=== PATIENT | male | born 1940 | race Caucasian/White ===

== ENCOUNTER 2018-11-30 09:17 | Inpatient (IN) ==
[2018-11-30] MEDS ORDERED: Pantoprazole Inj 40 MG Vial IV.PUSH ONE (11:44)
[2018-11-30] MEDS ORDERED: Sod Chloride 0.9% Inj 1,000 ML IV.SIG ONE (11:44)
--- NOTE | 2018-11-30 11:51 | ED ---
HPI General Chief complaint: GI Bleed Stated complaint: Bleeding Time Seen by Provider: 11/30/18 11:32 Source: patient and RN notes reviewed Mode of arrival: ambulatory Limitations: no limitations History of Present Illness HPI Narrative: 78-year-old male presents to the emergency department for evaluation of bright red blood per the rectum. Patient states he went to have a bowel movement this morning around 8:45 AM. He states he had bright red blood filling the toilet bowl with clots. He states he has had multiple episodes since then. Patient denies any pain to me right now. No weakness or syncope. No dizziness. No chest pain or shortness of breath. No nausea, vomiting, diarrhea. Patient denies drinking alcohol. He states he has been taking aspirin for back pain as well as Aleve. Patient reports history of a TURP, diabetes, hypertension, diverticulitis. Moderate severity. Patient denies being on any other anticoagulants other than aspirin. MD complaint: Reports gross hematochezia Onset (ago): hour(s) Pain Consistency: constant Severity: moderate Relieving factors: none Exacerbating factors: bowel movement Context: Reports hemorrhoids and medication/supplement use; Denies history of GI bleed, alcohol abuse, known esophageal varices, unusual food and near syncope Associated symptoms: Reports denies other symptoms; Denies abdominal pain, nausea, vomiting, epistaxis, fever, chills, headaches, loss of appetite, malaise , easy bruising, rash, other bleeding, shortness of breath, syncope and weakness Treatments Prior to Arrival: Reports none Related Data Home Medications Medication Instructions Recorded Confirmed aspirin 81 mg PO DAILY 08/10/18 11/30/18 losartan 50 mg PO DAILY 08/10/18 11/30/18 metformin 1,000 mg PO DAILY 08/10/18 11/30/18 omega 0-vvs-szk-fish oil [Fish Oil] 1 tab PO DAILY 08/10/18 11/30/18 glimepiride 4 mg PO QAM 11/30/18 11/30/18 Allergies Allergy/AdvReac Type Severity Reaction Status Date / Time No Known Allergies Allergy Verified 11/30/18 11:49 Review of Systems ROS: all other systems reviewed are negative [facility] Surgical History Surgical History S/P TURP (transurethral resection of prostate) (Acute) Social History Social History Substance History: No History of Abuse Second Hand Smoke Exposure: No Smoking Status: Former smoker Tobacco Type: Cigarettes How Often Do You Have a Drink Containing Alcohol: Never Recent Travel in [facility] within the Last 8 Weeks: No Recent Out of Country Travel within the Last 8 Weeks: No Exam Narrative Exam Narrative: GENERAL: Well-nourished, well-developed male patient, afebrile SKIN: Focused skin assessment warm/dry. HEAD: Normocephalic. Atraumatic EYES: No scleral icterus. No injection or drainage. NECK: Supple, trachea midline. No JVD or lymphadenopathy. CARDIOVASCULAR: Regular rate and rhythm without murmurs, gallops, or rubs. RESPIRATORY: Breath sounds equal bilaterally. No accessory muscle use. Lung sounds are clear to auscultation GASTROINTESTINAL: Abdomen soft and nondistended. Patient reports mild tenderness over the LLQ to palpation; no rebound tenderness; no guarding MUSCULOSKELETAL: No cyanosis, or edema. BACK: Nontender without obvious deformity. No CVA tenderness. RECTAL EXAM: No masses or tenderness, stool is red. Patient does have external hemorrhoids but do not appear to be bleeding. This exam was done with STEW Rosario at bedside. Course Initial Documented Vital Signs Temperature 98.3 F 11/30/18 09:34 Pulse Rate 93 H 11/30/18 09:34 Respiratory Rate 16 11/30/18 09:34 Blood Pressure 192/86 H 11/30/18 09:34 Pulse Oximetry 98 11/30/18 09:34 Last Documented Vital Signs Temperature 98.1 F 12/06/18 16:00 Pulse Rate 105 H 12/06/18 16:00 Respiratory Rate 19 12/06/18 16:00 Blood Pressure 174/80 H 12/06/18 16:15 Pulse Oximetry 99 12/06/18 16:00 Medical Decision Making BELLE Attestation BELLE supervised visit: Yes Attestation: I, Dr. Hunter, have reviewed the advance practice practitioner' s documentation and am in agreement, met with the patient face to face, made the diagnosis, and the medical decision making was done by me. The patient was initially evaluated by sandra pfeiffer. Please see their complete history and physical. MDM Narrative Medical decision making narrative: 78-year-old male presents to the emergency department for evaluation of bright red blood per the rectum that started this morning, filling the toilet bowl. Patient denies any other symptoms. Does report some mild left lower quadrant tenderness to palpation. IV access obtained. CBC, CMP, lipase, magnesium, PTT, PT/INR, type and screen are ordered and pending. CT abdomen/pelvis with IV contrast is ordered and pending. Patient is given normal saline 1 L IV bolus, Protonix 40 mg IV. CBC is unremarkable. Hemoglobin is stable at 13.9 hematocrit 40.2. CMP shows no acute abnormality. Lipase is 255. Magnesium is 2.3. PTT was 30.3. PT/INR is 10.7/1.1. CT abdomen/pelvis shows diverticulitis sigmoid colon without diverticulitis, perirectal tissues appear normal, I do not see inflammatory changes to account for the left lower quadrant pain. Patient will be admitted for observation as he describes a significant amount of bright red bleeding per the rectum to monitor hemoglobin, hematocrit. Medical Screen Exam Complete: Yes Emergency Medical Condition: Yes Differential Diagnosis Differential Diagnosis: Lower GI bleed versus upper GI bleed versus anemia versus bleeding hemorrhoid Medical Records Medical records reviewed: Yes I reviewed the patient's medical records. Lab Data Result diagrams: 12/06/18 07:48 12/06/18 07:43 Lab Results 11/30/18 11/30/18 11/30/18 Range/Units 11:50 11:50 11:50 WBC 8.2 (4.0-11.0) th/mm3 RBC 4.60 (4.50-5.90) mil/mm3 Hgb 13.9 (13.0-17.0) gm/dL Hct 40.2 (39.0-51.0) % MCV 87.4 (80.0-100.0) fL MCH 30.3 (27.0-34.0) pg MCHC 34.7 (32.0-36.0) % RDW 14.2 (11.6-17.2) % Plt Count 287 (150-450) th/mm3 MPV 7.2 (7.0-11.0) fL Neut % (Auto) 69.8 (16.0-70.0) % Lymph % (Auto) 19.1 (9.0-44.0) % [place] % (Auto) 6.9 (0.0-8.0) % Eos % (Auto) 3.3 (0.0-4.0) % Baso % (Auto) 0.9 (0.0-2.0) % Neut # (Auto) 5.7 (1.8-7.7) th/mm3 Lymph # (Auto) 1.6 (1.0-4.8) th/mm3 [place] # (Auto) 0.6 (0.0-0.9) th/mm3 Eos # (Auto) 0.3 (0.0-0.4) th/mm3 Baso # (Auto) 0.1 (0.0-0.2) th/mm3 WBC Differential . Differential Comment Auto diff final PT 10.7 (9.8-11.6) sec INR 1.1 Ratio APTT 30.3 (23.4-31.7) sec Sodium 135 L (136-145) meq/L Potassium 4.3 (3.5-5.1) meq/L Chloride 101 (98-107) meq/L Carbon Dioxide 27.8 (21.0-32.0) meq/L Anion Gap 6 (5-15) meq/L BUN 12 (7-18) mg/dL Creatinine 0.76 (0.60-1.30) mg/dL Estimated GFR Greater than 89 (>89) mL/min POC Glucose (68-110) mg/dl Random Glucose 128 H (74-106) mg/dL Calcium 9.9 (8.5-10.1) mg/dL Magnesium 2.3 (1.5-2.5) mg/dL Total Bilirubin 0.6 (0.2-1.0) mg/dL AST 21 (15-37) U/L ALT 26 (12-78) U/L Alkaline Phosphatase 97 (45-117) U/L Total Protein 8.1 (6.4-8.2) g/dL Albumin 3.8 (3.4-5.0) g/dL Lipase 255 (73-393) U/L Urine Color (Yellw/Straw) Urine Clarity (Clear) Urine pH (5.0-8.5) Ur Specific [place] (1.002-1.035) Urine Protein (Neg-Trace) mg/dL Urine Glucose (UA) (Negative) mg/dL Urine Ketones (Negative) mg/dL Urine Occult Blood (Negative) Urine Nitrate (Negative) Urine Bilirubin (Negative) Urine Urobilinogen (Less than 2) mg/dL Ur Leukocyte Esterase (Negative) Urine RBC (0-3) /hpf Urine WBC (0-5) /hpf Urine Mucus (Occasional) /lpf Micro UA Comment Ur Microscopic Review Urine Culture Comments Nasal Screen MRSA (PCR) (Negative) Blood Type Blood Type Recheck Antibody Screen MTS Gel Crossmatch 11/30/18 11/30/18 11/30/18 Range/Units 11:50 13:45 17:43 WBC (4.0-11.0) th/mm3 RBC (4.50-5.90) mil/mm3 Hgb (13.0-17.0) gm/dL Hct (39.0-51.0) % MCV (80.0-100.0) fL MCH (27.0-34.0) pg MCHC (32.0-36.0) % RDW (11.6-17.2) % Plt Count (150-450) th/mm3 MPV (7.0-11.0) fL Neut % (Auto) (16.0-70.0) % Lymph % (Auto) (9.0-44.0) % [place] % (Auto) (0.0-8.0) % Eos % (Auto) (0.0-4.0) % Baso % (Auto) (0.0-2.0) % Neut # (Auto) (1.8-7.7) th/mm3 Lymph # (Auto) (1.0-4.8) th/mm3 [place] # (Auto) (0.0-0.9) th/mm3 Eos # (Auto) (0.0-0.4) th/mm3 Baso # (Auto) (0.0-0.2) th/mm3 WBC Differential Differential Comment PT (9.8-11.6) sec INR Ratio APTT (23.4-31.7) sec Sodium (136-145) meq/L Potassium (3.5-5.1) meq/L Chloride (98-107) meq/L Carbon Dioxide (21.0-32.0) meq/L Anion Gap (5-15) meq/L BUN (7-18) mg/dL Creatinine (0.60-1.30) mg/dL Estimated GFR (>89) mL/min POC Glucose 124 H (68-110) mg/dl Random Glucose (74-106) mg/dL Calcium (8.5-10.1) mg/dL Magnesium (1.5-2.5) mg/dL Total Bilirubin (0.2-1.0) mg/dL AST (15-37) U/L ALT (12-78) U/L Alkaline Phosphatase (45-117) U/L Total Protein (6.4-8.2) g/dL Albumin (3.4-5.0) g/dL Lipase (73-393) U/L Urine Color Yellow (Yellw/Straw) Urine Clarity Clear (Clear) Urine pH 7.0 (5.0-8.5) Ur Specific [place] 1.014 (1.002-1.035) Urine Protein Negative (Neg-Trace) mg/dL Urine Glucose (UA) Negative (Negative) mg/dL Urine Ketones Negative (Negative) mg/dL Urine Occult Blood Negative (Negative) Urine Nitrate Negative (Negative) Urine Bilirubin Negative (Negative) Urine Urobilinogen Less than 2 (Less than 2) mg/dL Ur Leukocyte Esterase Negative (Negative) Urine RBC 1 (0-3) /hpf Urine WBC 2 (0-5) /hpf Urine Mucus Few H (Occasional) /lpf Micro UA Comment Culture not ind Ur Microscopic Review Not Reportable Urine Culture Comments Culture not ind Nasal Screen MRSA (PCR) (Negative) Blood Type A Positive Blood Type Recheck Required Antibody Screen Negative MTS Gel Crossmatch 11/30/18 11/30/18 11/30/18 Range/Units 18:15 18:30 19:45 WBC (4.0-11.0) th/mm3 RBC (4.50-5.90) mil/mm3 Hgb 11.6 L D (13.0-17.0) gm/dL Hct 33.8 L (39.0-51.0) % MCV (80.0-100.0) fL MCH (27.0-34.0) pg MCHC (32.0-36.0) % RDW (11.6-17.2) % Plt Count (150-450) th/mm3 MPV (7.0-11.0) fL Neut % (Auto) (16.0-70.0) % Lymph % (Auto) (9.0-44.0) % [place] % (Auto) (0.0-8.0) % Eos % (Auto) (0.0-4.0) % Baso % (Auto) (0.0-2.0) % Neut # (Auto) (1.8-7.7) th/mm3 Lymph # (Auto) (1.0-4.8) th/mm3 [place] # (Auto) (0.0-0.9) th/mm3 Eos # (Auto) (0.0-0.4) th/mm3 Baso # (Auto) (0.0-0.2) th/mm3 WBC Differential Differential Comment PT (9.8-11.6) sec INR Ratio APTT (23.4-31.7) sec Sodium (136-145) meq/L Potassium (3.5-5.1) meq/L Chloride (98-107) meq/L Carbon Dioxide (21.0-32.0) meq/L Anion Gap (5-15) meq/L BUN (7-18) mg/dL Creatinine (0.60-1.30) mg/dL Estimated GFR (>89) mL/min POC Glucose 127 H (68-110) mg/dl Random Glucose (74-106) mg/dL Calcium (8.5-10.1) mg/dL Magnesium (1.5-2.5) mg/dL Total Bilirubin (0.2-1.0) mg/dL AST (15-37) U/L ALT (12-78) U/L Alkaline Phosphatase (45-117) U/L Total Protein (6.4-8.2) g/dL Albumin (3.4-5.0) g/dL Lipase (73-393) U/L Urine Color (Yellw/Straw) Urine Clarity (Clear) Urine pH (5.0-8.5) Ur Specific [place] (1.002-1.035) Urine Protein (Neg-Trace) mg/dL Urine Glucose (UA) (Negative) mg/dL Urine Ketones (Negative) mg/dL Urine Occult Blood (Negative) Urine Nitrate (Negative) Urine Bilirubin (Negative) Urine Urobilinogen (Less than 2) mg/dL Ur Leukocyte Esterase (Negative) Urine RBC (0-3) /hpf Urine WBC (0-5) /hpf Urine Mucus (Occasional) /lpf Micro UA Comment Ur Microscopic Review Urine Culture Comments Nasal Screen MRSA (PCR) Not detected (Negative) Blood Type Blood Type Recheck Antibody Screen MTS Gel Crossmatch 11/30/18 11/30/18 12/01/18 Range/Units 22:38 23:36 03:11 WBC (4.0-11.0) th/mm3 RBC (4.50-5.90) mil/mm3 Hgb 10.9 L 10.9 L (13.0-17.0) gm/dL Hct 31.8 L 31.5 L (39.0-51.0) % MCV (80.0-100.0) fL MCH (27.0-34.0) pg MCHC (32.0-36.0) % RDW (11.6-17.2) % Plt Count (150-450) th/mm3 MPV (7.0-11.0) fL Neut % (Auto) (16.0-70.0) % Lymph % (Auto) (9.0-44.0) % [place] % (Auto) (0.0-8.0) % Eos % (Auto) (0.0-4.0) % Baso % (Auto) (0.0-2.0) % Neut # (Auto) (1.8-7.7) th/mm3 Lymph # (Auto) (1.0-4.8) th/mm3 [place] # (Auto) (0.0-0.9) th/mm3 Eos # (Auto) (0.0-0.4) th/mm3 Baso # (Auto) (0.0-0.2) th/mm3 WBC Differential Differential Comment PT (9.8-11.6) sec INR Ratio APTT (23.4-31.7) sec Sodium (136-145) meq/L Potassium (3.5-5.1) meq/L Chloride (98-107) meq/L Carbon Dioxide (21.0-32.0) meq/L Anion Gap (5-15) meq/L BUN (7-18) mg/dL Creatinine (0.60-1.30) mg/dL Estimated GFR (>89) mL/min POC Glucose 193 H (68-110) mg/dl Random Glucose (74-106) mg/dL Calcium (8.5-10.1) mg/dL Magnesium (1.5-2.5) mg/dL Total Bilirubin (0.2-1.0) mg/dL AST (15-37) U/L ALT (12-78) U/L Alkaline Phosphatase (45-117) U/L Total Protein (6.4-8.2) g/dL Albumin (3.4-5.0) g/dL Lipase (73-393) U/L Urine Color (Yellw/Straw) Urine Clarity (Clear) Urine pH (5.0-8.5) Ur Specific [place] (1.002-1.035) Urine Protein (Neg-Trace) mg/dL Urine Glucose (UA) (Negative) mg/dL Urine Ketones (Negative) mg/dL Urine Occult Blood (Negative) Urine Nitrate (Negative) Urine Bilirubin (Negative) Urine Urobilinogen (Less than 2) mg/dL Ur Leukocyte Esterase (Negative) Urine RBC (0-3) /hpf Urine WBC (0-5) /hpf Urine Mucus (Occasional) /lpf Micro UA Comment Ur Microscopic Review Urine Culture Comments Nasal Screen MRSA (PCR) (Negative) Blood Type Blood Type Recheck Antibody Screen MTS Gel Crossmatch 12/01/18 12/01/18 12/01/18 Range/Units 05:29 05:29 07:53 WBC (4.0-11.0) th/mm3 RBC (4.50-5.90) mil/mm3 Hgb 11.2 L (13.0-17.0) gm/dL Hct 32.0 L (39.0-51.0) % MCV (80.0-100.0) fL MCH (27.0-34.0) pg MCHC (32.0-36.0) % RDW (11.6-17.2) % Plt Count (150-450) th/mm3 MPV (7.0-11.0) fL Neut % (Auto) (16.0-70.0) % Lymph % (Auto) (9.0-44.0) % [place] % (Auto) (0.0-8.0) % Eos % (Auto) (0.0-4.0) % Baso % (Auto) (0.0-2.0) % Neut # (Auto) (1.8-7.7) th/mm3 Lymph # (Auto) (1.0-4.8) th/mm3 [place] # (Auto) (0.0-0.9) th/mm3 Eos # (Auto) (0.0-0.4) th/mm3 Baso # (Auto) (0.0-0.2) th/mm3 WBC Differential Differential Comment PT (9.8-11.6) sec INR Ratio APTT (23.4-31.7) sec Sodium 139 (136-145) meq/L Potassium 4.2 (3.5-5.1) meq/L Chloride 104 (98-107) meq/L Carbon Dioxide 27.1 (21.0-32.0) meq/L Anion Gap 8 (5-15) meq/L BUN 8 (7-18) mg/dL Creatinine 0.62 (0.60-1.30) mg/dL Estimated GFR Greater than 89 (>89) mL/min POC Glucose 181 H (68-110) mg/dl Random Glucose 143 H (74-106) mg/dL Calcium 9.0 D (8.5-10.1) mg/dL Magnesium 2.1 (1.5-2.5) mg/dL Total Bilirubin (0.2-1.0) mg/dL AST (15-37) U/L ALT (12-78) U/L Alkaline Phosphatase (45-117) U/L Total Protein (6.4-8.2) g/dL Albumin (3.4-5.0) g/dL Lipase (73-393) U/L Urine Color (Yellw/Straw) Urine Clarity (Clear) Urine pH (5.0-8.5) Ur Specific [place] (1.002-1.035) Urine Protein (Neg-Trace) mg/dL Urine Glucose (UA) (Negative) mg/dL Urine Ketones (Negative) mg/dL Urine Occult Blood (Negative) Urine Nitrate (Negative) Urine Bilirubin (Negative) Urine Urobilinogen (Less than 2) mg/dL Ur Leukocyte Esterase (Negative) Urine RBC (0-3) /hpf Urine WBC (0-5) /hpf Urine Mucus (Occasional) /lpf Micro UA Comment Ur Microscopic Review Urine Culture Comments Nasal Screen MRSA (PCR) (Negative) Blood Type Blood Type Recheck Antibody Screen MTS Gel Crossmatch 12/01/18 12/01/18 12/01/18 Range/Units 11:38 14:08 15:56 WBC (4.0-11.0) th/mm3 RBC (4.50-5.90) mil/mm3 Hgb 9.2 L D (13.0-17.0) gm/dL Hct 26.5 L (39.0-51.0) % MCV (80.0-100.0) fL MCH (27.0-34.0) pg MCHC (32.0-36.0) % RDW (11.6-17.2) % Plt Count (150-450) th/mm3 MPV (7.0-11.0) fL Neut % (Auto) (16.0-70.0) % Lymph % (Auto) (9.0-44.0) % [place] % (Auto) (0.0-8.0) % Eos % (Auto) (0.0-4.0) % Baso % (Auto) (0.0-2.0) % Neut # (Auto) (1.8-7.7) th/mm3 Lymph # (Auto) (1.0-4.8) th/mm3 [place] # (Auto) (0.0-0.9) th/mm3 Eos # (Auto) (0.0-0.4) th/mm3 Baso # (Auto) (0.0-0.2) th/mm3 WBC Differential Differential Comment PT (9.8-11.6) sec INR Ratio APTT (23.4-31.7) sec Sodium (136-145) meq/L Potassium (3.5-5.1) meq/L Chloride (98-107) meq/L Carbon Dioxide (21.0-32.0) meq/L Anion Gap (5-15) meq/L BUN (7-18) mg/dL Creatinine (0.60-1.30) mg/dL Estimated GFR (>89) mL/min POC Glucose 174 H (68-110) mg/dl Random Glucose (74-106) mg/dL Calcium (8.5-10.1) mg/dL Magnesium (1.5-2.5) mg/dL Total Bilirubin (0.2-1.0) mg/dL AST (15-37) U/L ALT (12-78) U/L Alkaline Phosphatase (45-117) U/L Total Protein (6.4-8.2) g/dL Albumin (3.4-5.0) g/dL Lipase (73-393) U/L Urine Color ([place]ell[place]/Straw) Urine Clarity (Clear) Urine pH (5.0-8.5) Ur Specific [place] (1.002-1.035) Urine Protein (Neg-Trace) mg/dL Urine Glucose (UA) (Negative) mg/dL Urine Ketones (Negative) mg/dL Urine Occult Blood (Negative) Urine Nitrate (Negative) Urine Bilirubin (Negative) Urine Urobilinogen (Less than 2) mg/dL Ur Leukocyte Esterase (Negative) Urine RBC (0-3) /hpf Urine WBC (0-5) /hpf Urine Mucus (Occasional) /lpf Micro UA Comment Ur Microscopic Review Urine Culture Comments Nasal Screen MRSA (PCR) (Negative) Blood Type Blood Type Recheck Antibody Screen MTS Gel Crossmatch See Detail 12/01/18 12/01/18 12/02/18 Range/Units 20:47 20:50 03:08 WBC 9.1 (4.0-11.0) th/mm3 RBC 2.77 L (4.50-5.90) mil/mm3 Hgb 8.8 L 8.4 L (13.0-17.0) gm/dL Hct 25.4 L 24.1 L (39.0-51.0) % MCV 87.1 (80.0-100.0) fL MCH 30.3 (27.0-34.0) pg MCHC 34.8 (32.0-36.0) % RDW 14.4 (11.6-17.2) % Plt Count 210 (150-450) th/mm3 MPV 7.1 (7.0-11.0) fL Neut % (Auto) 72.8 H (16.0-70.0) % Lymph % (Auto) 15.2 (9.0-44.0) % [place] % (Auto) 8.6 H (0.0-8.0) % Eos % (Auto) 2.7 (0.0-4.0) % Baso % (Auto) 0.7 (0.0-2.0) % Neut # (Auto) 6.6 (1.8-7.7) th/mm3 Lymph # (Auto) 1.4 (1.0-4.8) th/mm3 [place] # (Auto) 0.8 (0.0-0.9) th/mm3 Eos # (Auto) 0.2 (0.0-0.4) th/mm3 Baso # (Auto) 0.1 (0.0-0.2) th/mm3 WBC Differential . Differential Comment Auto diff final PT (9.8-11.6) sec INR Ratio APTT (23.4-31.7) sec Sodium (136-145) meq/L Potassium (3.5-5.1) meq/L Chloride (98-107) meq/L Carbon Dioxide (21.0-32.0) meq/L Anion Gap (5-15) meq/L BUN (7-18) mg/dL Creatinine (0.60-1.30) mg/dL Estimated GFR (>89) mL/min POC Glucose 191 H (68-110) mg/dl Random Glucose (74-106) mg/dL Calcium (8.5-10.1) mg/dL Magnesium (1.5-2.5) mg/dL Total Bilirubin (0.2-1.0) mg/dL AST (15-37) U/L ALT (12-78) U/L Alkaline Phosphatase (45-117) U/L Total Protein (6.4-8.2) g/dL Albumin (3.4-5.0) g/dL Lipase (73-393) U/L Urine Color ([place]ell[place]/Straw) Urine Clarity (Clear) Urine pH (5.0-8.5) Ur Specific [place] (1.002-1.035) Urine Protein (Neg-Trace) mg/dL Urine Glucose (UA) (Negative) mg/dL Urine Ketones (Negative) mg/dL Urine Occult Blood (Negative) Urine Nitrate (Negative) Urine Bilirubin (Negative) Urine Urobilinogen (Less than 2) mg/dL Ur Leukocyte Esterase (Negative) Urine RBC (0-3) /hpf Urine WBC (0-5) /hpf Urine Mucus (Occasional) /lpf Micro UA Comment Ur Microscopic Review Urine Culture Comments Nasal Screen MRSA (PCR) (Negative) Blood Type Blood Type Recheck Antibody Screen MTS Gel Crossmatch 12/02/18 12/02/18 12/02/18 Range/Units 07:32 10:59 17:23 WBC (4.0-11.0) th/mm3 RBC (4.50-5.90) mil/mm3 Hgb (13.0-17.0) gm/dL Hct (39.0-51.0) % MCV (80.0-100.0) fL MCH (27.0-34.0) pg MCHC (32.0-36.0) % RDW (11.6-17.2) % Plt Count (150-450) th/mm3 MPV (7.0-11.0) fL Neut % (Auto) (16.0-70.0) % Lymph % (Auto) (9.0-44.0) % [place] % (Auto) (0.0-8.0) % Eos % (Auto) (0.0-4.0) % Baso % (Auto) (0.0-2.0) % Neut # (Auto) (1.8-7.7) th/mm3 Lymph # (Auto) (1.0-4.8) th/mm3 [place] # (Auto) (0.0-0.9) th/mm3 Eos # (Auto) (0.0-0.4) th/mm3 Baso # (Auto) (0.0-0.2) th/mm3 WBC Differential Differential Comment PT (9.8-11.6) sec INR Ratio APTT (23.4-31.7) sec Sodium (136-145) meq/L Potassium (3.5-5.1) meq/L Chloride (98-107) meq/L Carbon Dioxide (21.0-32.0) meq/L Anion Gap (5-15) meq/L BUN (7-18) mg/dL Creatinine (0.60-1.30) mg/dL Estimated GFR (>89) mL/min POC Glucose 184 H 164 H 206 H (68-110) mg/dl Random Glucose (74-106) mg/dL Calcium (8.5-10.1) mg/dL Magnesium (1.5-2.5) mg/dL Total Bilirubin (0.2-1.0) mg/dL AST (15-37) U/L ALT (12-78) U/L Alkaline Phosphatase (45-117) U/L Total Protein (6.4-8.2) g/dL Albumin (3.4-5.0) g/dL Lipase (73-393) U/L Urine Color ([place]ellw/Straw) Urine Clarity (Clear) Urine pH (5.0-8.5) Ur Specific [place] (1.002-1.035) Urine Protein (Neg-Trace) mg/dL Urine Glucose (UA) (Negative) mg/dL Urine Ketones (Negative) mg/dL Urine Occult Blood (Negative) Urine Nitrate (Negative) Urine Bilirubin (Negative) Urine Urobilinogen (Less than 2) mg/dL Ur Leukocyte Esterase (Negative) Urine RBC (0-3) /hpf Urine WBC (0-5) /hpf Urine Mucus (Occasional) /lpf Micro UA Comment Ur Microscopic Review Urine Culture Comments Nasal Screen MRSA (PCR) (Negative) Blood Type Blood Type Recheck Antibody Screen MTS Gel Crossmatch 12/02/18 12/02/18 12/03/18 Range/Units 18:11 21:03 07:37 WBC (4.0-11.0) th/mm3 RBC (4.50-5.90) mil/mm3 Hgb 10.5 L D (13.0-17.0) gm/dL Hct 29.3 L (39.0-51.0) % MCV (80.0-100.0) fL MCH (27.0-34.0) pg MCHC (32.0-36.0) % RDW (11.6-17.2) % Plt Count (150-450) th/mm3 MPV (7.0-11.0) fL Neut % (Auto) (16.0-70.0) % Lymph % (Auto) (9.0-44.0) % [place] % (Auto) (0.0-8.0) % Eos % (Auto) (0.0-4.0) % Baso % (Auto) (0.0-2.0) % Neut # (Auto) (1.8-7.7) th/mm3 Lymph # (Auto) (1.0-4.8) th/mm3 [place] # (Auto) (0.0-0.9) th/mm3 Eos # (Auto) (0.0-0.4) th/mm3 Baso # (Auto) (0.0-0.2) th/mm3 WBC Differential Differential Comment PT (9.8-11.6) sec INR Ratio APTT (23.4-31.7) sec Sodium (136-145) meq/L Potassium (3.5-5.1) meq/L Chloride (98-107) meq/L Carbon Dioxide (21.0-32.0) meq/L Anion Gap (5-15) meq/L BUN (7-18) mg/dL Creatinine (0.60-1.30) mg/dL Estimated GFR (>89) mL/min POC Glucose 257 H 176 H (68-110) mg/dl Random Glucose (74-106) mg/dL Calcium (8.5-10.1) mg/dL Magnesium (1.5-2.5) mg/dL Total Bilirubin (0.2-1.0) mg/dL AST (15-37) U/L ALT (12-78) U/L Alkaline Phosphatase (45-117) U/L Total Protein (6.4-8.2) g/dL Albumin (3.4-5.0) g/dL Lipase (73-393) U/L Urine Color (Yellw/Straw) Urine Clarity (Clear) Urine pH (5.0-8.5) Ur Specific [place] (1.002-1.035) Urine Protein (Neg-Trace) mg/dL Urine Glucose (UA) (Negative) mg/dL Urine Ketones (Negative) mg/dL Urine Occult Blood (Negative) Urine Nitrate (Negative) Urine Bilirubin (Negative) Urine Urobilinogen (Less than 2) mg/dL Ur Leukocyte Esterase (Negative) Urine RBC (0-3) /hpf Urine WBC (0-5) /hpf Urine Mucus (Occasional) /lpf Micro UA Comment Ur Microscopic Review Urine Culture Comments Nasal Screen MRSA (PCR) (Negative) Blood Type Blood Type Recheck Antibody Screen MTS Gel Crossmatch 12/03/18 12/03/18 12/03/18 Range/Units 11:45 14:32 14:32 WBC 7.2 (4.0-11.0) th/mm3 RBC 3.15 L (4.50-5.90) mil/mm3 Hgb 9.5 L (13.0-17.0) gm/dL Hct 27.4 L (39.0-51.0) % MCV 87.1 (80.0-100.0) fL MCH 30.2 (27.0-34.0) pg MCHC 34.7 (32.0-36.0) % RDW 14.8 (11.6-17.2) % Plt Count 189 (150-450) th/mm3 MPV 7.3 (7.0-11.0) fL Neut % (Auto) 68.3 (16.0-70.0) % Lymph % (Auto) 18.2 (9.0-44.0) % [place] % (Auto) 7.5 (0.0-8.0) % Eos % (Auto) 5.3 H (0.0-4.0) % Baso % (Auto) 0.7 (0.0-2.0) % Neut # (Auto) 4.9 (1.8-7.7) th/mm3 Lymph # (Auto) 1.3 (1.0-4.8) th/mm3 [place] # (Auto) 0.5 (0.0-0.9) th/mm3 Eos # (Auto) 0.4 (0.0-0.4) th/mm3 Baso # (Auto) 0.1 (0.0-0.2) th/mm3 WBC Differential . Differential Comment Auto diff final PT (9.8-11.6) sec INR Ratio APTT (23.4-31.7) sec Sodium 140 (136-145) meq/L Potassium 3.6 (3.5-5.1) meq/L Chloride 107 (98-107) meq/L Carbon Dioxide 25.2 (21.0-32.0) meq/L Anion Gap 8 (5-15) meq/L BUN 5 L (7-18) mg/dL Creatinine 0.71 (0.60-1.30) mg/dL Estimated GFR Greater than 89 (>89) mL/min POC Glucose 195 H (68-110) mg/dl Random Glucose 170 H (74-106) mg/dL Calcium 8.5 (8.5-10.1) mg/dL Magnesium (1.5-2.5) mg/dL Total Bilirubin (0.2-1.0) mg/dL AST (15-37) U/L ALT (12-78) U/L Alkaline Phosphatase (45-117) U/L Total Protein (6.4-8.2) g/dL Albumin (3.4-5.0) g/dL Lipase (73-393) U/L Urine Color ([place]ellw/Straw) Urine Clarity (Clear) Urine pH (5.0-8.5) Ur Specific [place] (1.002-1.035) Urine Protein (Neg-Trace) mg/dL Urine Glucose (UA) (Negative) mg/dL Urine Ketones (Negative) mg/dL Urine Occult Blood (Negative) Urine Nitrate (Negative) Urine Bilirubin (Negative) Urine Urobilinogen (Less than 2) mg/dL Ur Leukocyte Esterase (Negative) Urine RBC (0-3) /hpf Urine WBC (0-5) /hpf Urine Mucus (Occasional) /lpf Micro UA Comment Ur Microscopic Review Urine Culture Comments Nasal Screen MRSA (PCR) (Negative) Blood Type Blood Type Recheck Antibody Screen MTS Gel Crossmatch 12/03/18 12/03/18 12/04/18 Range/Units 16:58 20:37 06:36 WBC 7.3 (4.0-11.0) th/mm3 RBC 3.26 L (4.50-5.90) mil/mm3 Hgb 9.9 L (13.0-17.0) gm/dL Hct 28.3 L (39.0-51.0) % MCV 86.9 (80.0-100.0) fL MCH 30.4 (27.0-34.0) pg MCHC 35.0 (32.0-36.0) % RDW 14.4 (11.6-17.2) % Plt Count 220 (150-450) th/mm3 MPV 7.4 (7.0-11.0) fL Neut % (Auto) 70.7 H (16.0-70.0) % Lymph % (Auto) 15.3 (9.0-44.0) % [place] % (Auto) 7.5 (0.0-8.0) % Eos % (Auto) 5.9 H (0.0-4.0) % Baso % (Auto) 0.6 (0.0-2.0) % Neut # (Auto) 5.2 (1.8-7.7) th/mm3 Lymph # (Auto) 1.1 (1.0-4.8) th/mm3 [place] # (Auto) 0.6 (0.0-0.9) th/mm3 Eos # (Auto) 0.4 (0.0-0.4) th/mm3 Baso # (Auto) 0.0 (0.0-0.2) th/mm3 WBC Differential . Differential Comment Auto diff final PT (9.8-11.6) sec INR Ratio APTT (23.4-31.7) sec Sodium (136-145) meq/L Potassium (3.5-5.1) meq/L Chloride (98-107) meq/L Carbon Dioxide (21.0-32.0) meq/L Anion Gap (5-15) meq/L BUN (7-18) mg/dL Creatinine (0.60-1.30) mg/dL Estimated GFR (>89) mL/min POC Glucose 176 H 175 H (68-110) mg/dl Random Glucose (74-106) mg/dL Calcium (8.5-10.1) mg/dL Magnesium (1.5-2.5) mg/dL Total Bilirubin (0.2-1.0) mg/dL AST (15-37) U/L ALT (12-78) U/L Alkaline Phosphatase (45-117) U/L Total Protein (6.4-8.2) g/dL Albumin (3.4-5.0) g/dL Lipase (73-393) U/L Urine Color (Yellw/Straw) Urine Clarity (Clear) Urine pH (5.0-8.5) Ur Specific [place] (1.002-1.035) Urine Protein (Neg-Trace) mg/dL Urine Glucose (UA) (Negative) mg/dL Urine Ketones (Negative) mg/dL Urine Occult Blood (Negative) Urine Nitrate (Negative) Urine Bilirubin (Negative) Urine Urobilinogen (Less than 2) mg/dL Ur Leukocyte Esterase (Negative) Urine RBC (0-3) /hpf Urine WBC (0-5) /hpf Urine Mucus (Occasional) /lpf Micro UA Comment Ur Microscopic Review Urine Culture Comments Nasal Screen MRSA (PCR) (Negative) Blood Type Blood Type Recheck Antibody Screen MTS Gel Crossmatch 12/04/18 12/04/18 12/04/18 Range/Units 07:46 11:44 17:59 WBC (4.0-11.0) th/mm3 RBC (4.50-5.90) mil/mm3 Hgb (13.0-17.0) gm/dL Hct (39.0-51.0) % MCV (80.0-100.0) fL MCH (27.0-34.0) pg MCHC (32.0-36.0) % RDW (11.6-17.2) % Plt Count (150-450) th/mm3 MPV (7.0-11.0) fL Neut % (Auto) (16.0-70.0) % Lymph % (Auto) (9.0-44.0) % [place] % (Auto) (0.0-8.0) % Eos % (Auto) (0.0-4.0) % Baso % (Auto) (0.0-2.0) % Neut # (Auto) (1.8-7.7) th/mm3 Lymph # (Auto) (1.0-4.8) th/mm3 [place] # (Auto) (0.0-0.9) th/mm3 Eos # (Auto) (0.0-0.4) th/mm3 Baso # (Auto) (0.0-0.2) th/mm3 WBC Differential Differential Comment PT (9.8-11.6) sec INR Ratio APTT (23.4-31.7) sec Sodium (136-145) meq/L Potassium (3.5-5.1) meq/L Chloride (98-107) meq/L Carbon Dioxide (21.0-32.0) meq/L Anion Gap (5-15) meq/L BUN (7-18) mg/dL Creatinine (0.60-1.30) mg/dL Estimated GFR (>89) mL/min POC Glucose 169 H 179 H 136 H (68-110) mg/dl Random Glucose (74-106) mg/dL Calcium (8.5-10.1) mg/dL Magnesium (1.5-2.5) mg/dL Total Bilirubin (0.2-1.0) mg/dL AST (15-37) U/L ALT (12-78) U/L Alkaline Phosphatase (45-117) U/L Total Protein (6.4-8.2) g/dL Albumin (3.4-5.0) g/dL Lipase (73-393) U/L Urine Color (Yellw/Straw) Urine Clarity (Clear) Urine pH (5.0-8.5) Ur Specific [place] (1.002-1.035) Urine Protein (Neg-Trace) mg/dL Urine Glucose (UA) (Negative) mg/dL Urine Ketones (Negative) mg/dL Urine Occult Blood (Negative) Urine Nitrate (Negative) Urine Bilirubin (Negative) Urine Urobilinogen (Less than 2) mg/dL Ur Leukocyte Esterase (Negative) Urine RBC (0-3) /hpf Urine WBC (0-5) /hpf Urine Mucus (Occasional) /lpf Micro UA Comment Ur Microscopic Review Urine Culture Comments Nasal Screen MRSA (PCR) (Negative) Blood Type Blood Type Recheck Antibody Screen MTS Gel Crossmatch 12/04/18 12/05/18 12/05/18 Range/Units 21:06 07:08 07:08 WBC 6.7 (4.0-11.0) th/mm3 RBC 3.34 L (4.50-5.90) mil/mm3 Hgb 10.3 L (13.0-17.0) gm/dL Hct 28.9 L (39.0-51.0) % MCV 86.7 (80.0-100.0) fL MCH 30.8 (27.0-34.0) pg MCHC 35.5 (32.0-36.0) % RDW 14.5 (11.6-17.2) % Plt Count 233 (150-450) th/mm3 MPV 7.1 (7.0-11.0) fL Neut % (Auto) 75.5 H (16.0-70.0) % Lymph % (Auto) 12.0 (9.0-44.0) % [place] % (Auto) 7.5 (0.0-8.0) % Eos % (Auto) 4.4 H (0.0-4.0) % Baso % (Auto) 0.6 (0.0-2.0) % Neut # (Auto) 5.1 (1.8-7.7) th/mm3 Lymph # (Auto) 0.8 L (1.0-4.8) th/mm3 [place] # (Auto) 0.5 (0.0-0.9) th/mm3 Eos # (Auto) 0.3 (0.0-0.4) th/mm3 Baso # (Auto) 0.0 (0.0-0.2) th/mm3 WBC Differential . Differential Comment Auto diff final PT (9.8-11.6) sec INR Ratio APTT (23.4-31.7) sec Sodium 138 (136-145) meq/L Potassium 3.4 L (3.5-5.1) meq/L Chloride 105 (98-107) meq/L Carbon Dioxide 24.4 (21.0-32.0) meq/L Anion Gap 9 (5-15) meq/L BUN 7 (7-18) mg/dL Creatinine 0.65 (0.60-1.30) mg/dL Estimated GFR Greater than 89 (>89) mL/min POC Glucose 146 H (68-110) mg/dl Random Glucose 141 H (74-106) mg/dL Calcium 8.9 (8.5-10.1) mg/dL Magnesium (1.5-2.5) mg/dL Total Bilirubin (0.2-1.0) mg/dL AST (15-37) U/L ALT (12-78) U/L Alkaline Phosphatase (45-117) U/L Total Protein (6.4-8.2) g/dL Albumin (3.4-5.0) g/dL Lipase (73-393) U/L Urine Color (Yellw/Straw) Urine Clarity (Clear) Urine pH (5.0-8.5) Ur Specific [place] (1.002-1.035) Urine Protein (Neg-Trace) mg/dL Urine Glucose (UA) (Negative) mg/dL Urine Ketones (Negative) mg/dL Urine Occult Blood (Negative) Urine Nitrate (Negative) Urine Bilirubin (Negative) Urine Urobilinogen (Less than 2) mg/dL Ur Leukocyte Esterase (Negative) Urine RBC (0-3) /hpf Urine WBC (0-5) /hpf Urine Mucus (Occasional) /lpf Micro UA Comment Ur Microscopic Review Urine Culture Comments Nasal Screen MRSA (PCR) (Negative) Blood Type Blood Type Recheck Antibody Screen MTS Gel Crossmatch 12/05/18 12/05/18 12/05/18 Range/Units 07:59 12:02 17:46 WBC (4.0-11.0) th/mm3 RBC (4.50-5.90) mil/mm3 Hgb (13.0-17.0) gm/dL Hct (39.0-51.0) % MCV (80.0-100.0) fL MCH (27.0-34.0) pg MCHC (32.0-36.0) % RDW (11.6-17.2) % Plt Count (150-450) th/mm3 MPV (7.0-11.0) fL Neut % (Auto) (16.0-70.0) % Lymph % (Auto) (9.0-44.0) % [place] % (Auto) (0.0-8.0) % Eos % (Auto) (0.0-4.0) % Baso % (Auto) (0.0-2.0) % Neut # (Auto) (1.8-7.7) th/mm3 Lymph # (Auto) (1.0-4.8) th/mm3 [place] # (Auto) (0.0-0.9) th/mm3 Eos # (Auto) (0.0-0.4) th/mm3 Baso # (Auto) (0.0-0.2) th/mm3 WBC Differential Differential Comment PT (9.8-11.6) sec INR Ratio APTT (23.4-31.7) sec Sodium (136-145) meq/L Potassium (3.5-5.1) meq/L Chloride (98-107) meq/L Carbon Dioxide (21.0-32.0) meq/L Anion Gap (5-15) meq/L BUN (7-18) mg/dL Creatinine (0.60-1.30) mg/dL Estimated GFR (>89) mL/min POC Glucose 154 H 150 H 137 H (68-110) mg/dl Random Glucose (74-106) mg/dL Calcium (8.5-10.1) mg/dL Magnesium (1.5-2.5) mg/dL Total Bilirubin (0.2-1.0) mg/dL AST (15-37) U/L ALT (12-78) U/L Alkaline Phosphatase (45-117) U/L Total Protein (6.4-8.2) g/dL Albumin (3.4-5.0) g/dL Lipase (73-393) U/L Urine Color (Yellw/Straw) Urine Clarity (Clear) Urine pH (5.0-8.5) Ur Specific [place] (1.002-1.035) Urine Protein (Neg-Trace) mg/dL Urine Glucose (UA) (Negative) mg/dL Urine Ketones (Negative) mg/dL Urine Occult Blood (Negative) Urine Nitrate (Negative) Urine Bilirubin (Negative) Urine Urobilinogen (Less than 2) mg/dL Ur Leukocyte Esterase (Negative) Urine RBC (0-3) /hpf Urine WBC (0-5) /hpf Urine Mucus (Occasional) /lpf Micro UA Comment Ur Microscopic Review Urine Culture Comments Nasal Screen MRSA (PCR) (Negative) Blood Type Blood Type Recheck Antibody Screen MTS Gel Crossmatch 12/05/18 12/06/18 12/06/18 Range/Units 21:27 07:43 07:48 WBC 7.0 (4.0-11.0) th/mm3 RBC 3.70 L (4.50-5.90) mil/mm3 Hgb 11.2 L (13.0-17.0) gm/dL Hct 32.4 L (39.0-51.0) % MCV 87.8 (80.0-100.0) fL MCH 30.4 (27.0-34.0) pg MCHC 34.6 (32.0-36.0) % RDW 14.7 (11.6-17.2) % Plt Count 274 (150-450) th/mm3 MPV 7.3 (7.0-11.0) fL Neut % (Auto) 72.8 H (16.0-70.0) % Lymph % (Auto) 13.4 (9.0-44.0) % [place] % (Auto) 8.3 H (0.0-8.0) % Eos % (Auto) 4.7 H (0.0-4.0) % Baso % (Auto) 0.8 (0.0-2.0) % Neut # (Auto) 5.1 (1.8-7.7) th/mm3 Lymph # (Auto) 0.9 L (1.0-4.8) th/mm3 [place] # (Auto) 0.6 (0.0-0.9) th/mm3 Eos # (Auto) 0.3 (0.0-0.4) th/mm3 Baso # (Auto) 0.1 (0.0-0.2) th/mm3 WBC Differential . Differential Comment Auto diff final PT (9.8-11.6) sec INR Ratio APTT (23.4-31.7) sec Sodium 136 (136-145) meq/L Potassium 3.9 (3.5-5.1) meq/L Chloride 103 (98-107) meq/L Carbon Dioxide 21.3 (21.0-32.0) meq/L Anion Gap 12 (5-15) meq/L BUN 10 (7-18) mg/dL Creatinine 0.71 (0.60-1.30) mg/dL Estimated GFR Greater than 89 (>89) mL/min POC Glucose 133 H (68-110) mg/dl Random Glucose 124 H (74-106) mg/dL Calcium 9.4 (8.5-10.1) mg/dL Magnesium 2.0 (1.5-2.5) mg/dL Total Bilirubin (0.2-1.0) mg/dL AST (15-37) U/L ALT (12-78) U/L Alkaline Phosphatase (45-117) U/L Total Protein (6.4-8.2) g/dL Albumin (3.4-5.0) g/dL Lipase (73-393) U/L Urine Color (Yellw/Straw) Urine Clarity (Clear) Urine pH (5.0-8.5) Ur Specific [place] (1.002-1.035) Urine Protein (Neg-Trace) mg/dL Urine Glucose (UA) (Negative) mg/dL Urine Ketones (Negative) mg/dL Urine Occult Blood (Negative) Urine Nitrate (Negative) Urine Bilirubin (Negative) Urine Urobilinogen (Less than 2) mg/dL Ur Leukocyte Esterase (Negative) Urine RBC (0-3) /hpf Urine WBC (0-5) /hpf Urine Mucus (Occasional) /lpf Micro UA Comment Ur Microscopic Review Urine Culture Comments Nasal Screen MRSA (PCR) (Negative) Blood Type Blood Type Recheck Antibody Screen MTS Gel Crossmatch 12/06/18 12/06/18 12/06/18 Range/Units 08:04 11:37 17:31 WBC (4.0-11.0) th/mm3 RBC (4.50-5.90) mil/mm3 Hgb (13.0-17.0) gm/dL Hct (39.0-51.0) % MCV (80.0-100.0) fL MCH (27.0-34.0) pg MCHC (32.0-36.0) % RDW (11.6-17.2) % Plt Count (150-450) th/mm3 MPV (7.0-11.0) fL Neut % (Auto) (16.0-70.0) % Lymph % (Auto) (9.0-44.0) % [place] % (Auto) (0.0-8.0) % Eos % (Auto) (0.0-4.0) % Baso % (Auto) (0.0-2.0) % Neut # (Auto) (1.8-7.7) th/mm3 Lymph # (Auto) (1.0-4.8) th/mm3 [place] # (Auto) (0.0-0.9) th/mm3 Eos # (Auto) (0.0-0.4) th/mm3 Baso # (Auto) (0.0-0.2) th/mm3 WBC Differential Differential Comment PT (9.8-11.6) sec INR Ratio APTT (23.4-31.7) sec Sodium (136-145) meq/L Potassium (3.5-5.1) meq/L Chloride (98-107) meq/L Carbon Dioxide (21.0-32.0) meq/L Anion Gap (5-15) meq/L BUN (7-18) mg/dL Creatinine (0.60-1.30) mg/dL Estimated GFR (>89) mL/min POC Glucose 137 H 143 H 124 H (68-110) mg/dl Random Glucose (74-106) mg/dL Calcium (8.5-10.1) mg/dL Magnesium (1.5-2.5) mg/dL Total Bilirubin (0.2-1.0) mg/dL AST (15-37) U/L ALT (12-78) U/L Alkaline Phosphatase (45-117) U/L Total Protein (6.4-8.2) g/dL Albumin (3.4-5.0) g/dL Lipase (73-393) U/L Urine Color ([place]ell[place]/Straw) Urine Clarity (Clear) Urine pH (5.0-8.5) Ur Specific [place] (1.002-1.035) Urine Protein (Neg-Trace) mg/dL Urine Glucose (UA) (Negative) mg/dL Urine Ketones (Negative) mg/dL Urine Occult Blood (Negative) Urine Nitrate (Negative) Urine Bilirubin (Negative) Urine Urobilinogen (Less than 2) mg/dL Ur Leukocyte Esterase (Negative) Urine RBC (0-3) /hpf Urine WBC (0-5) /hpf Urine Mucus (Occasional) /lpf Micro UA Comment Ur Microscopic Review Urine Culture Comments Nasal Screen MRSA (PCR) (Negative) Blood Type Blood Type Recheck Antibody Screen MTS Gel Crossmatch Imaging Data Radiologist's impression: Abdomen/Pelvis CTA 11/30/18 00:00 CONCLUSION: 1. No acute abnormality.. No active source of hemorrhage observed. 2. Diverticulosis of the colon. Abdomen/Pelvis CT 11/30/18 11:44 CONCLUSION: 1. Diverticuli sigmoid colon without diverticulitis 2. Perirectal tissues appear normal 3. I do not see inflammatory changes to account for the left lower quadrant pain. GI Bleed Scan Nuclear Medicine 12/01/18 15:38 CONCLUSION: 1. Left upper quadrant source, probably splenic flexure Mesenteric Arteriogram 12/02/18 10:53 CONCLUSION: 1. No evidence of acute gastrointestinal bleed. Discharge Plan Discharge Disposition Patient Disposition: ED Admit(ED Internal Use Only) Discharge Condition Condition: Stable Discharge Order Discharge Orders: Discharge Order (Routine); Ordered 12/06/18 Ordered By: Stephie Sewell ED Use Only Admit Order (Routine); Ordered 11/30/18 Ordered By: Sandra Pfeiffer Discharge Details Anticipated Discharge Date: 12/06/18 Discharge Comment: If pt tolerates advanced diet and no further bleeding he may be discharged at [address] Chavez in 2 weeks, call for an appt. Followup with Dr. Eden in 1 week, call for that appt. Diagnosis: GI bleed, Hematochezia Physicians Team ED Provider: Rikki Hunter ED Midlevel Provider: Sandra Pfeiffer Primary Care Provider: Jhony Eden Attending Provider: Norman Garcia Other Providers: Chad Chavez V Status ED Status: Left Department Discharge Information Discharge Date/Time: 11/30/18 18:05
[2018-11-30 12:32] LABS: Baso # (Auto) 0.1 th/mm3 (0.0-0.2); Baso % (Auto) 0.9 % (0.0-2.0); Eos # (Auto) 0.3 th/mm3 (0.0-0.4); Eos % (Auto) 3.3 % (0.0-4.0); Hematocrit 40.2 % (39.0-51.0); Hemoglobin 13.9 gm/dL (13.0-17.0); Lymph # (Auto) 1.6 th/mm3 (1.0-4.8); Lymph % (Auto) 19.1 % (9.0-44.0); Mean Corpuscular HGB Conc 34.7 % (32.0-36.0); Mean Corpuscular Hemoglobin 30.3 pg (27.0-34.0); Mean Corpuscular Volume 87.4 fL (80.0-100.0); Mean Platelet Volume 7.2 fL (7.0-11.0); Mono # (Auto) 0.6 th/mm3 (0.0-0.9); Mono % (Auto) 6.9 % (0.0-8.0); Neut # (Auto) 5.7 th/mm3 (1.8-7.7); Neut % (Auto) 69.8 % (16.0-70.0); Platelet Count 287 th/mm3 (150-450); Red Cell Distribution Width 14.2 % (11.6-17.2); White Blood Count 8.2 th/mm3 (4.0-11.0)
[2018-11-30 12:44] LABS: Activated Partial Thrombo Time 30.3 sec (23.4-31.7); INR 1.1 Ratio; Prothrombin Time 10.7 sec (9.8-11.6)
[2018-11-30 12:51] LABS: Albumin 3.8 g/dL (3.4-5.0); Anion Gap 6 meq/L (5-15); Aspartate Aminotransferase 21 U/L (15-37); Blood Urea Nitrogen 12 mg/dL (7-18); Calcium 9.9 mg/dL (8.5-10.1); Carbon Dioxide 27.8 meq/L (21.0-32.0); Chloride 101 meq/L (98-107); Glomerular Filtration Rate Greater Than 89 mL/min (>89); Glucose,Random 128 mg/dL (74-106); Lipase 255 U/L (73-393); Magnesium 2.3 mg/dL (1.5-2.5); Potassium 4.3 meq/L (3.5-5.1); Sodium 135 meq/L (136-145)
[2018-11-30 12:52] LABS: Alanine Aminotransferase 26 U/L (12-78)
[2018-11-30 12:54] LABS: Alkaline Phosphatase 97 U/L (45-117); Total Protein 8.1 g/dL (6.4-8.2)
--- NOTE | 2018-11-30 14:00 | CT ---
EXAM DATE: 11/30/2018 1:53 PM EST AGE/SEX: 78 years / Male INDICATIONS: Left lower quadrant pain with rectal bleeding. CLINICAL DATA: This is the patient's initial encounter. Patient reports that signs and symptoms have been present for 1 day and indicates a pain score of 0/10. MEDICAL/SURGICAL HISTORY: Diabetes. Hypertension. . TARP ORAL CONTRAST: No oral contrast ingested. RADIATION DOSE: 15.30 CTDI (mGy) COMPARISON: No prior exams available for comparison. TECHNIQUE: Multiple contiguous axial images were obtained through the abdomen and pelvis following b olus infusion of 96 ml Omnipaque 350 (iohexol) nonionic water-soluble contrast as a single exam dos e. No oral contrast ingested. Using automated exposure control and adjustment of the mA and/or kV ac cording to patient size, radiation dose was kept as low as reasonably achievable to obtain optimal di agnostic quality images. DICOM format image data is available electronically for review and comparis on. FINDINGS: The lower lungs are clear. The liver, spleen, gallbladder and pancreas unremarkable. Granulomas are noted in the spleen.. The adrenal glands appear normal Right kidney: Unremarkable Left kidney: Unremarkable The cecum, ascending, transverse and descending colon appear normal. There are no inflammatory changes in the mesentery. In the pelvis there are multiple diverticuli in the sigmoid colon with some bowel wall thickening. Th ere are no inflammatory changes evident. Perirectal tissues appear normal. There is no inguinal adenopathy. Review of bone windows reveals only degenerative changes in the lumbar spine. Moderate vascular calcifications are noted. CONCLUSION: 1. Diverticuli sigmoid colon without diverticulitis 2. Perirectal tissues appear normal 3. I do not see inflammatory changes to account for the left lower quadrant pain. Electronically signed by: Arpan Moran MD Board Certified Radiologist 11/30/2018 1:58 PM EST
[2018-11-30 14:31] LABS: Bilirubin,Urine Negative (Negative); Clarity,Urine Clear (Clear); Color,Urine Yellow (Yellw/Straw); Glucose,Urine (UA) Negative (Negative); Leukocyte Esterase,Urine Negative (Negative); Mucus,Urine Few /lpf (Occasional); Nitrite,Urine Negative (Negative); Specific Gravity,Urine 1.014 (1.002-1.035)
[2018-11-30] MEDS ORDERED: Dextrose 50% in Water 50 ML Vial IV.PUSH PRN (14:35)
[2018-11-30] MEDS ORDERED: amLODIPine 10 MG Tablet PO SCH (15:00)
[2018-11-30] MEDS: Pantoprazole Inj 40 MG Vial IV.PUSH SCH ×2 (15:56→22:37)
[2018-11-30] MEDS: Sod Chloride 0.9% Inj 1,000 ML IV.CONT SCH (15:56)
--- NOTE | 2018-11-30 15:56 | P.HPIM ---
History of Present Illness Primary Care Physician: Jhony Eden History of Present Illness: This patient is a 78-year-old male with a diagnosis of hypertension, diabetes mellitus type 2, BPH. The patient denies any family history of colon cancer. He says approximately 10 years ago he had a colonoscopy that showed diverticulitis however no other significant findings. The patient denies having any history of upper or lower GI bleed. The patient recently had a fall after walking up a flight of stairs and hurt his back. He was going to rehab today and was at the facility where he noticed that he had a bright red bowel movement. He denies any recent black stools or hematemesis. Denies any nausea or vomiting, no abdominal pain, no shortness of breath, no chest pain. After he had the bloody stool he came into the emergency department for evaluation. Past medical history hypertension, diabetes mellitus type 2, BPH Surgical history transurethral resection of the prostate Family history no history of colon cancer in the family. Social history the patient admits to smoking for approximately 5 years while he was in college, has not smoked since then. Denies any history of alcohol or drug use. Review of Systems Review of Systems: all other systems reviewed are negative [facility] Surgical History Surgical History S/P TURP (transurethral resection of prostate) (Acute) Social History Social History Substance History: No History of Abuse Second Hand Smoke Exposure: No Smoking Status: Current every day smoker Tobacco Type: Cigarettes How Often Do You Have a Drink Containing Alcohol: Never Recent Travel in [facility] within the Last 8 Weeks: No Recent Out of Country Travel within the Last 8 Weeks: No Immunization History Tetanus Immunization: <5 Years Medications and Allergies Allergies Allergy/AdvReac Type Severity Reaction Status Date / Time No Known Allergies Allergy Verified 11/30/18 11:49 Home Medications Medication Instructions Recorded Confirmed Type ascorbic acid (vitamin C) [Vitamin 500 mg PO DAILY 08/10/18 11/30/18 History C] aspirin 81 mg PO DAILY 08/10/18 11/30/18 History cinnamon bark [Cinnamon] 1 tab PO BID 08/10/18 11/30/18 History losartan 50 mg PO DAILY 08/10/18 11/30/18 History metformin 1,000 mg PO DAILY 08/10/18 11/30/18 History multivitamin 1 tab PO DAILY 08/10/18 11/30/18 History omega 3-ami-hjn-fish oil [Fish Oil] 1 tab PO DAILY 08/10/18 11/30/18 History glimepiride 4 mg PO QAM 11/30/18 11/30/18 History Active Medications: Active Medications Amlodipine Besylate (Norvasc) 10 mg PO DAILY DULCE MARIA Dextrose (D50w Vial) 50 ml IV.PUSH UNSCH PRN PRN Reason: PER HYPOGLYCEMIA PROTOCOL Glucagon (Glucagon Inj) 1 mg OTHER PRN PRN PRN Reason: for Hypoglycemia Protocol Sodium Chloride (Ns Inj) 1,000 mls @ 100 mls/hr IV.CONT .Q10H DULCE MARIA Insulin Aspart (Novolog Insulin Correctional Sugar Inj) 0 unit SQ ACHS DULCE MARIA; Protocol Ondansetron HCl (Zofran Inj) 4 mg IV.PUSH Q6H PRN PRN Reason: NAUSEA OR VOMITING Pantoprazole Sodium (Protonix Inj) 40 mg IV.PUSH Q12HR DULCE MARIA Sodium Chloride (Ns Flush) 2 ml IV.FLUSH PRN PRN PRN Reason: FLUSH AFTER USING IV ACCESS Last Admin: 11/30/18 12:54 Dose: 2 ml Physical Exam Vital signs: Vital Signs 11/30/18 09:34 11/30/18 11:47 11/30/18 12:30 Temperature 98.3 F Pulse Rate 93 H 90 Respiratory Rate 16 16 Blood Pressure 192/86 H 182/88 H Pulse Oximetry 98 98 98 11/30/18 13:00 11/30/18 14:00 Temperature Pulse Rate 90 88 Respiratory Rate 24 16 Blood Pressure 177/81 H 166/74 H Pulse Oximetry 99 98 Intake & Output 11/29/18 11/30/18 11/30/18 18:59 06:59 18:59 Weight 92.533 kg Narrative: General patient in no acute distress HEENT extraocular movements are intact, clear oropharyngeal mucosa, no JVD Cardiovascular S1-S2 audible, RRR, no murmurs rubs or gallops Respiratory clear to auscultation bilaterally Abdomen soft, nontender, nondistended, normal bowel sounds Extremities no edema 2+ distal pulses in bilateral upper and lower extremities Neuro no focal neurological deficits Results Labs CBC & Chem 7: 11/30/18 11:50 11/30/18 11:50 Imaging Impressions Abdomen/Pelvis CT 11/30/18 11:44 CONCLUSION: 1. Diverticuli sigmoid colon without diverticulitis 2. Perirectal tissues appear normal 3. I do not see inflammatory changes to account for the left lower quadrant pain. Caprini VTE Risk Assessment Caprini VTE Risk Assessment: Moderate/High Risk (score >= 2) Caprini Risk Assessment Model: Point Value = 1 Point Value = 2 Point Value = 3 Point Value = 5 Age 41-60 Minor surgery BMI > 25 kg/m2 Swollen legs Varicose veins or History of unexplained or recurrent spontaneous Oral contraceptives or hormone replacement Sepsis (< 1 month) Serious lung disease, including pneumonia (< 1 month) Abnormal pulmonary function Acute myocardial infarction Congestive heart failure (< 1 month) History of inflammatory bowel disease Medical patient at bed rest Age 61-74 Arthroscopic surgery Major open surgery (> 45 min) Laparoscopic surgery (> 45 min) Malignancy Confined to bed (> 72 hours) Immobilizing plaster cast Central venous access Age >= 75 History of VTE Family history of VTE Factor V Leiden Prothrombin [id number] Lupus anticoagulant Anticardiolipin antibodies Elevated serum homocysteine Heparin-induced thrombocytopenia Other congenital or acquired thrombophilia Stroke (< 1 month) Elective arthroplasty Hip, pelvis, or leg fracture Acute spinal cord injury (< 1 month) Prophylaxis Regimen: Total Risk Factor Score Risk Level Prophylaxis Regimen 0-1 Low Early ambulation 2 Moderate Order ONE of the following: *Sequential Compression Device (SCD) *Heparin 5000 units SQ BID 3-4 Higher Order ONE of the following medications: *Heparin 5000 units SQ TID *Enoxaparin/Lovenox 40 mg SQ daily (WT < 150 kg, CrCl > 30 mL/min) *Enoxaparin/Lovenox 30 mg SQ daily (WT < 150 kg, CrCl > 10-29 mL/min) *Enoxaparin/Lovenox 30 mg SQ BID (WT < 150 kg, CrCl > 30 mL/min) AND/OR *Sequential Compression Device (SCD) 5 or more Highest Order ONE of the following medications: *Heparin 5000 units SQ TID (Preferred with Epidurals) *Enoxaparin/Lovenox 40 mg SQ daily (WT < 150 kg, CrCl > 30 mL/min) *Enoxaparin/Lovenox 30 mg SQ daily (WT < 150 kg, CrCl > 10-29 mL/min) *Enoxaparin/Lovenox 30 mg SQ BID (WT < 150 kg, CrCl > 30 mL/min) AND *Sequential Compression Device (SCD) Assessment and Plan Plan This patient is a 78-year-old male with a diagnosis of hypertension, diabetes mellitus type 2, BPH. The patient denies any family history of colon cancer. He says approximately 10 years ago he had a colonoscopy that showed diverticulitis however no other significant findings. The patient denies having any history of upper or lower GI bleed. The patient recently had a fall after walking up a flight of stairs and hurt his back. He was going to rehab today and was at the facility where he noticed that he had a bright red bowel movement. 1. Acute GI bleed likely lower The patient presents with the findings mentioned above Hemoglobin is stable around 13.9. Platelet count and INR within normal limits Please will be started on IV Protonix twice daily. GI has been consulted to evaluate the patient. He would likely need colonoscopy. Will initiate prep for colonoscopy. Follow-up hemoglobin tonight, and in the a.m. I will follow-up with the recognitions from gastroneurology. 2. Hypertension Patient will be started on Norvasc. Clonidine as needed for elevated blood pressure. 3. Diabetes mellitus type 2 Accu-Cheks q. before meals and at bedtime Low-dose insulin sliding scale No pharmacotherapy for DVT Proflex as the patient currently has a GI bleed, SCDs.
[2018-11-30] MEDS ORDERED: PEG 3350/E-Lyte Soln 4000 ML Bottle PO ONE (16:30)
[2018-11-30] MEDS: Insulin NovoLOG Aspart Correctional Sugar Inj SQ SCH ×2 (17:44→22:39)
[2018-11-30 18:52] LABS: Hematocrit 33.8 % (39.0-51.0); Hemoglobin 11.6 gm/dL (13.0-17.0)
[2018-11-30] MEDS ORDERED: Sod Chloride 0.9% Inj 2,000 ML IV.SIG SCH (19:15)
--- NOTE | 2018-11-30 21:02 | CT ---
EXAM DATE: 11/30/2018 8:47 PM EST AGE/SEX: 78 years / Male INDICATIONS: Patient actively bleeding from rectum. Decrease in hemoglobin. CLINICAL DATA: This is the patient's initial encounter. Patient reports that signs and symptoms have been present for 1 day and indicates a pain score of 0/10. MEDICAL/SURGICAL HISTORY: Diabetes. Diverticulitis. Hypertension. None. RADIATION DOSE: 15.25 CTDI (mGy) COMPARISON: No prior exams available for comparison. TECHNIQUE: Volumetric scanning was performed using a multi-row detector CT scanner during bolus infu radha of 75 ml Visipaque 320 (iodixanol) nonionic water-soluble contrast as a single exam dose. The data was post processed with a variety of visualization algorithms including full volume maximum int ensity projection, multi-planar sliding thin slab reformation, curved planar reformation, and surface rendering techniques. Using automated exposure control and adjustment of the mA and/or kV according to patient size, radiation dose was kept as low as reasonably achievable to obtain optimal diagnosti c quality images. DICOM format image data is available electronically for review and comparison. FINDINGS: ABDOMINAL AORTA: Mild scattered calcified plaque within the infrarenal aorta and inflow vessels. No a neurysmal change or stenosis. Mesenteric vessels are patent including the MAYDA. Renal arteries are pat ent. 2. Supply the left kidney. A single renal artery seen involving the right kidney but this quickly div ides into 2 branches. Inflow vessels are patent. OTHER STRUCTURES: No extravasation of intravenous contrast observed to suggest a site of hemorrhage. Multiple colonic diverticula. No acute inflammation. Small bowel and stomach are unremarkable. Append ix is normal by CT criteria. Tiny hiatal hernia. Granulomatous calcifications involving the spleen. R emaining visceral structures are unremarkable. A degenerative spine. CONCLUSION: 1. No acute abnormality.. No active source of hemorrhage observed. 2. Diverticulosis of the colon. Electronically signed by: Colby Gilbert MD Board Certified Radiologist 11/30/2018 9:00 PM EST
--- NOTE | 2018-11-30 21:35 | P.CONGI ---
History of Present Illness Consult date: 11/30/18 Consult reason: GI bleed rectal bleeding Chief complaint: GI Bleed History of Present Illness: This is a pleasant 78-year-old with significant medical history of diverticulitis diverticulosis diabetes type 2 hypertension who came in with rectal bleeding started 2 days ago. Patient had TURP done for prostate cancer. Patient noted over a week that his stool is dark red and today had a massive bowel movement with bright red per rectum which made the patient to be lightheaded and diaphoretic prompting him to come for an ER visit for evaluation. At the ED patient had several more episodes of nannette bleeding per rectum with some clots associated with mild diffuse abdominal discomfort. Patient denies any nausea vomiting. No fever the past 24 hours. Patient does not remember any EGD. Had colonoscopy done several years ago and patient cannot remember the result. Patient admits to taking daily ibuprofen and aspirin for his osteoarthritis after his fall. Patient denies any cardiac issues or any anticoagulant. our service is consulted for rectal bleeding. Review of Systems All other systems reviewed negative except as stated in HPI [facility] - History History Provided By: Patient - Medical History Medical History: Medical History (Last Reviewed 11/30/18 @ 11:48 by [employer]) Diabetes Diverticulitis Hypertension - Surgical History Surgical History: Surgical History (Last Reviewed 11/30/18 @ 11:48 by [employer]) S/P TURP (transurethral resection of prostate) - Tobacco History Second Hand Smoke Exposure: No Tobacco Use In Past 30 Days: No Smoking Status: Former smoker Tobacco Type: Cigarettes - Alcohol History How Often Do You Have a Drink Containing Alcohol: Never - Substance Use History Substance History: No History of Abuse - Travel History Recent Travel in the [place] Within the Last 8 Weeks: No Recent Travel Out of the Country Within the Last 8 Weeks: No - Immunization History Tetanus Immunization: <5 Years Medications and Allergies Active Medications: Active Medications Chlorhexidine Gluconate (Chlorhexidine 2% Cloth) 3 pack TOPICAL DAILY@0400 DULCE MARIA Stop: 12/06/18 03:59 Chlorhexidine Gluconate (Chlorhexidine 2% Cloth) 3 pack TOPICAL DAILY@0400 PRN PRN Reason: Extra cloth needed Stop: 12/06/18 03:59 Dextrose (D50w Vial) 50 ml IV.PUSH UNSCH PRN PRN Reason: PER HYPOGLYCEMIA PROTOCOL Glucagon (Glucagon Inj) 1 mg OTHER PRN PRN PRN Reason: for Hypoglycemia Protocol Sodium Chloride (Ns Inj) 1,000 mls @ 100 mls/hr IV.CONT .Q10H [facility] Last Admin: 11/30/18 15:56 Dose: 100 mls/hr Insulin Aspart (Novolog Insulin Correctional Sugar Inj) 0 unit SQ ACHS DULCE MARIA; Protocol Last Admin: 11/30/18 17:44 Dose: Not Given Ondansetron HCl (Zofran Inj) 4 mg IV.PUSH Q6H PRN PRN Reason: NAUSEA OR VOMITING Pantoprazole Sodium (Protonix Inj) 40 mg IV.PUSH Q12HR [facility] Last Admin: 11/30/18 15:56 Dose: Not Given Sodium Chloride (Ns Flush) 2 ml IV.FLUSH PRN PRN PRN Reason: FLUSH AFTER USING IV ACCESS Last Admin: 11/30/18 12:54 Dose: 2 ml Allergies Allergy/AdvReac Type Severity Reaction Status Date / Time No Known Allergies Allergy Verified 11/30/18 11:49 Home Medications Medication Instructions Recorded Confirmed Type ascorbic acid (vitamin C) [Vitamin 500 mg PO DAILY 08/10/18 11/30/18 History C] aspirin 81 mg PO DAILY 08/10/18 11/30/18 History cinnamon bark [Cinnamon] 1 tab PO BID 08/10/18 11/30/18 History losartan 50 mg PO DAILY 08/10/18 11/30/18 History metformin 1,000 mg PO DAILY 08/10/18 11/30/18 History multivitamin 1 tab PO DAILY 08/10/18 11/30/18 History omega [id number]-bcy-wxl-fish oil [Fish Oil] 1 tab PO DAILY 08/10/18 11/30/18 History glimepiride 4 mg PO QAM 11/30/18 11/30/18 History Exam Vital signs: Vital Signs 11/30/18 09:34 11/30/18 11:47 11/30/18 12:30 Temperature 98.3 F Pulse Rate 93 H 90 Respiratory Rate 16 16 Blood Pressure 192/86 H 182/88 H Pulse Oximetry 98 98 98 11/30/18 13:00 11/30/18 14:00 11/30/18 15:00 Temperature Pulse Rate 90 88 97 H Respiratory Rate 24 16 18 Blood Pressure 177/81 H 166/74 H 182/81 H Pulse Oximetry 99 98 99 11/30/18 16:00 11/30/18 17:00 11/30/18 17:30 Temperature Pulse Rate 93 H 96 H 93 H Respiratory Rate 17 16 16 Blood Pressure 174/79 H 173/79 H 149/67 H Pulse Oximetry 99 98 97 11/30/18 18:25 11/30/18 18:31 Temperature 97.7 F Pulse Rate 80 Respiratory Rate 18 Blood Pressure 76/56 L 125/60 Pulse Oximetry 96 Intake & Output 11/30/18 11/30/18 12/01/18 06:59 18:59 06:59 Intake Total 1000 / 1000 Balance 1000 / 1000 Weight 92.533 kg 94.5 kg Intake: IV 1000 / 1000 Other: Weight On Admission 94.5 kg - Constitutional mild distress - Routine HEENT Exam Head: Present: normocephalic, atraumatic - Routine Neck Exam Present: supple - Routine Respiratory Exam Present: CTA bilaterally - Routine Cardiovascular Exam Present: RRR, S1, S2 - Routine Abdominal Exam Present: soft, normoactive bowel sounds, tenderness. Absent: distended Comments: Mild tenderness on palpation - Routine Extremities Exam Present: pulses intact, normal capillary refill - Routine Skin Exam Present: intact - Routine Neurological Exam Present: alert, oriented X3 Results - Labs CBC & Chem 7: 11/30/18 18:30 11/30/18 11:50 Labs: Laboratory Results - last 24 hr 11/30/18 11/30/18 11/30/18 11:50 11:50 11:50 WBC 8.2 RBC 4.60 Hgb 13.9 Hct 40.2 MCV 87.4 MCH 30.3 MCHC 34.7 RDW 14.2 Plt Count 287 MPV 7.2 Neut % (Auto) 69.8 Lymph % (Auto) 19.1 [place] % (Auto) 6.9 Eos % (Auto) 3.3 Baso % (Auto) 0.9 Neut # (Auto) 5.7 Lymph # (Auto) 1.6 [place] # (Auto) 0.6 Eos # (Auto) 0.3 Baso # (Auto) 0.1 WBC Differential . Differential Comment Auto diff final PT 10.7 INR 1.1 APTT 30.3 Sodium 135 L Potassium 4.3 Chloride 101 Carbon Dioxide 27.8 Anion Gap 6 BUN 12 Creatinine 0.76 Estimated GFR Greater than 89 POC Glucose Random Glucose 128 H Calcium 9.9 Magnesium 2.3 Total Bilirubin 0.6 AST 21 ALT 26 Alkaline Phosphatase 97 Total Protein 8.1 Albumin 3.8 Lipase 255 Urine Color Urine Clarity Urine pH Ur Specific [place] Urine Protein Urine Glucose (UA) Urine Ketones Urine Occult Blood Urine Nitrate Urine Bilirubin Urine Urobilinogen Ur Leukocyte Esterase Urine RBC Urine WBC Urine Mucus Micro UA Comment Ur Microscopic Review Urine Culture Comments Blood Type Blood Type Recheck Antibody Screen 11/30/18 11/30/18 11/30/18 11:50 13:45 17:43 WBC RBC Hgb Hct MCV MCH MCHC RDW Plt Count MPV Neut % (Auto) Lymph % (Auto) [place] % (Auto) Eos % (Auto) Baso % (Auto) Neut # (Auto) Lymph # (Auto) [place] # (Auto) Eos # (Auto) Baso # (Auto) WBC Differential Differential Comment PT INR APTT Sodium Potassium Chloride Carbon Dioxide Anion Gap BUN Creatinine Estimated GFR POC Glucose 124 H Random Glucose Calcium Magnesium Total Bilirubin AST ALT Alkaline Phosphatase Total Protein Albumin Lipase Urine Color Yellow Urine Clarity Clear Urine pH 7.0 Ur Specific [place] 1.014 Urine Protein Negative Urine Glucose (UA) Negative Urine Ketones Negative Urine Occult Blood Negative Urine Nitrate Negative Urine Bilirubin Negative Urine Urobilinogen Less than 2 Ur Leukocyte Esterase Negative Urine RBC 1 Urine WBC 2 Urine Mucus Few H Micro UA Comment Culture not ind Ur Microscopic Review Not Reportable Urine Culture Comments Culture not ind Blood Type A Positive Blood Type Recheck Required Antibody Screen Negative 11/30/18 11/30/18 18:15 18:30 WBC RBC Hgb 11.6 L D Hct 33.8 L MCV MCH MCHC RDW Plt Count MPV Neut % (Auto) Lymph % (Auto) [place] % (Auto) Eos % (Auto) Baso % (Auto) Neut # (Auto) Lymph # (Auto) [place] # (Auto) Eos # (Auto) Baso # (Auto) WBC Differential Differential Comment PT INR APTT Sodium Potassium Chloride Carbon Dioxide Anion Gap BUN Creatinine Estimated GFR POC Glucose 127 H Random Glucose Calcium Magnesium Total Bilirubin AST ALT Alkaline Phosphatase Total Protein Albumin Lipase Urine Color Urine Clarity Urine pH Ur Specific [place] Urine Protein Urine Glucose (UA) Urine Ketones Urine Occult Blood Urine Nitrate Urine Bilirubin Urine Urobilinogen Ur Leukocyte Esterase Urine RBC Urine WBC Urine Mucus Micro UA Comment Ur Microscopic Review Urine Culture Comments Blood Type Blood Type Recheck Antibody Screen - Imaging Impressions Abdomen/Pelvis CTA 11/30/18 00:00 CONCLUSION: 1. No acute abnormality.. No active source of hemorrhage observed. 2. Diverticulosis of the colon. Abdomen/Pelvis CT 11/30/18 11:44 CONCLUSION: 1. Diverticuli sigmoid colon without diverticulitis 2. Perirectal tissues appear normal 3. I do not see inflammatory changes to account for the left lower quadrant pain. Assessment and Plan (1) Excessive use of nonsteroidal anti-inflammatory drugs (NSAIDs) Status: Acute Code(s): F19.90 - Other psychoactive substance use, unspecified , uncomplicated (2) GI bleed Status: Acute Code(s): K92.2 - Gastrointestinal hemorrhage, unspecified (3) Hematochezia Status: Acute Code(s): K92.1 - Melena - Plan 11/30/2018 This is a pleasant 78-year-old with significant medical history of diverticulitis diverticulosis diabetes type 2 hypertension who came in with rectal bleeding started 2 days ago. Patient had TURP done for prostate cancer. Patient noted over a week that his stool is dark red and today had a massive bowel movement with bright red per rectum which made the patient to be lightheaded and diaphoretic prompting him to come for an ER visit for evaluation. Patient denies having profuse rectal bleeding in the past although he admits that he had diverticulosis with his last colonoscopy. at the ED patient had several more episodes of nannette bleeding per rectum with some clots associated with mild diffuse abdominal discomfort. Patient denies any nausea vomiting. No fever the past 24 hours. Patient does not remember any EGD. had colonoscopy done several years ago and and was told to have diverticulosis. Patient admits to taking daily ibuprofen and aspirin for his osteoarthritis after his fall. Patient denies any cardiac issues or any anticoagulant taken at home. our service is consulted for GI bleed/rectal bleeding. Assessment Hematochezia GI bleeding NSAIDs abuse CTA done 11/30/2018 showed No acute abnormality.. No active source of hemorrhage observed. Diverticulosis of the colon. Plan N.p.o. Obtain consent for EGD colonoscopy Monitor for active bleeding notify GI team for profuse rectal bleeding Monitor H&H PPI Supportive care Further recommendations to follow This patient was seen and examined by Dr. Chavez and myself and his note is written on his behalf - Attending Attestation Dr Chavez (2) GI bleed Qualifiers: GI bleed type/associated pathology: unspecified gastrointestinal hemorrhage type Qualified Code(s): K92.2 - Gastrointestinal hemorrhage, unspecified
[2018-11-30 23:49] LABS: Hematocrit 31.8 % (39.0-51.0); Hemoglobin 10.9 gm/dL (13.0-17.0)
[2018-12-01 03:19] LABS: Hematocrit 31.5 % (39.0-51.0); Hemoglobin 10.9 gm/dL (13.0-17.0)
[2018-12-01] MEDS ORDERED: Chlorhexidine Gluconate 2% 1 Pack (2 Cloths) TOPICAL PRN (04:00)
[2018-12-01] MEDS: Sod Chloride 0.9% Inj 1,000 ML IV.CONT SCH ×3 (05:23→20:52)
[2018-12-01] MEDS: Chlorhexidine Gluconate 2% 1 Pack (2 Cloths) TOPICAL SCH (05:25)
[2018-12-01] MEDS: PEG 3350/E-Lyte Soln 4000 ML Bottle PO SCH (05:25)
[2018-12-01 06:24] LABS: Hemoglobin 11.2 gm/dL (13.0-17.0)
[2018-12-01 06:41] LABS: Anion Gap 8 meq/L (5-15); Blood Urea Nitrogen 8 mg/dL (7-18); Carbon Dioxide 27.1 meq/L (21.0-32.0); Chloride 104 meq/L (98-107); Glomerular Filtration Rate Greater Than 89 mL/min (>89); Glucose,Random 143 mg/dL (74-106); Magnesium 2.1 mg/dL (1.5-2.5); Potassium 4.2 meq/L (3.5-5.1); Sodium 139 meq/L (136-145)
[2018-12-01] MEDS: Pantoprazole Inj 40 MG Vial IV.PUSH SCH ×2 (08:40→20:52)
[2018-12-01] MEDS: Insulin NovoLOG Aspart Correctional Sugar Inj SQ SCH ×4 (08:53→21:08)
--- NOTE | 2018-12-01 09:32 | P.PNIM ---
Subjective Interval history: getting bowel prep for gib pt with red blood per rectum this morning during prep. Physical Exam Vital signs: Last Vital Signs Temp 97.3 F L 12/01/18 08:00 Pulse 85 12/01/18 08:00 Resp 20 12/01/18 08:00 BP 114/97 H 12/01/18 08:00 Pulse Ox 100 12/01/18 08:00 Narrative: nad ambulating red blood per rectum with bm's Results Labs CBC & Chem 7: 12/01/18 05:29 12/01/18 05:29 Assessment and Plan Assessment (1) Excessive use of nonsteroidal anti-inflammatory drugs (NSAIDs): Code(s): F19.90 - Other psychoactive substance use, unspecified, uncomplicated Status: Acute (2) GI bleed: Code(s): K92.2 - Gastrointestinal hemorrhage, unspecified Status: Acute (3) Hematochezia: Code(s): K92.1 - Melena Status: Acute Plan Pt presented with acute gib and brbpr. he has diverticulosis. His hgb is stable pt is on ivf he is on ppi going for egd/colon today prn bp meds npo status. ssi and hold home oha Progress Note: Quality VTE Deep Vein Thrombosis/Pulmonary Embolism Present on Admission: No _ (1) GI bleed Qualifiers: GI bleed type/associated pathology: unspecified gastrointestinal hemorrhage type Gastritis type: Qualified Code(s): K92.2 - Gastrointestinal hemorrhage, unspecified
--- NOTE | 2018-12-01 11:36 | P.PNGI ---
Subjective Interval history: Patient awake and alert Family present Completed GoLYTELY prep Denies abdominal pain nausea or vomiting Discussed plan for EGD and colonoscopy in a.m. No further rectal bleeding reported post prep Physical Exam Vital signs: Vital Signs 11/30/18 11:47 11/30/18 12:30 11/30/18 13:00 Temperature Pulse Rate 90 90 Respiratory Rate 16 24 Blood Pressure 182/88 H 177/81 H Pulse Oximetry 98 98 99 11/30/18 14:00 11/30/18 15:00 11/30/18 16:00 Temperature Pulse Rate 88 97 H 93 H Respiratory Rate 16 18 17 Blood Pressure 166/74 H 182/81 H 174/79 H Pulse Oximetry 98 99 99 11/30/18 17:00 11/30/18 17:30 11/30/18 18:25 Temperature Pulse Rate 96 H 93 H Respiratory Rate 16 16 Blood Pressure 173/79 H 149/67 H 76/56 L Pulse Oximetry 98 97 11/30/18 18:31 11/30/18 20:00 11/30/18 22:00 Temperature 97.7 F 98.2 F Pulse Rate 80 91 H 86 Respiratory Rate 18 22 Blood Pressure 125/60 178/76 H Pulse Oximetry 96 12/01/18 00:00 12/01/18 02:00 12/01/18 04:00 Temperature Pulse Rate 74 80 68 Respiratory Rate 18 16 Blood Pressure 149/66 H 129/60 Pulse Oximetry 97 12/01/18 06:00 12/01/18 07:30 12/01/18 08:00 Temperature 97.3 F L Pulse Rate 66 85 85 Respiratory Rate 20 Blood Pressure 114/97 H Pulse Oximetry 100 12/01/18 09:50 Temperature Pulse Rate 88 Respiratory Rate Blood Pressure Pulse Oximetry Intake & Output 11/30/18 12/01/18 12/01/18 18:59 06:59 18:59 Intake Total 1000 / 1000 1000 / 1000 Output Total 1900 / 1900 Balance 1000 / 1000 -900 / -900 Weight 92.533 kg 94 kg Intake: IV 1000 / 1000 1000 / 1000 NS Inj 1,000 ML @ 100 mls/hr IV 1000 / 1000 .CONT .Q10H DULCE MARIA Rx#:[id number] Output: Urine 1900 / 1900 Other: Date of Last Bowel Movement 02/20/19 02/21/19 # Bowel Movements 1 1 Weight On Admission 94.5 kg - Constitutional no acute distress, cooperative - Routine HEENT Exam Head: Present: normocephalic ENT: Present: mucous membranes moist - Routine Respiratory Exam Present: CTA bilaterally. Absent: accessory muscle use - Routine Abdominal Exam Present: soft, normoactive bowel sounds. Absent: tenderness, distended, guarding, firm - Routine Skin Exam Present: dry, warm. Absent: pallor - Routine Neurological Exam Present: alert Results - Labs CBC & Chem 7: 12/01/18 14:08 12/01/18 05:29 Laboratory Results - last 24 hr 11/30/18 11/30/18 11/30/18 11:50 11:50 11:50 WBC 8.2 RBC 4.60 Hgb 13.9 Hct 40.2 MCV 87.4 MCH 30.3 MCHC 34.7 RDW 14.2 Plt Count 287 MPV 7.2 Neut % (Auto) 69.8 Lymph % (Auto) 19.1 [place] % (Auto) 6.9 Eos % (Auto) 3.3 Baso % (Auto) 0.9 Neut # (Auto) 5.7 Lymph # (Auto) 1.6 [place] # (Auto) 0.6 Eos # (Auto) 0.3 Baso # (Auto) 0.1 WBC Differential . Differential Comment Auto diff final PT 10.7 INR 1.1 APTT 30.3 Sodium 135 L Potassium 4.3 Chloride 101 Carbon Dioxide 27.8 Anion Gap 6 BUN 12 Creatinine 0.76 Estimated GFR Greater than 89 POC Glucose Random Glucose 128 H Calcium 9.9 Magnesium 2.3 Total Bilirubin 0.6 AST 21 ALT 26 Alkaline Phosphatase 97 Total Protein 8.1 Albumin 3.8 Lipase 255 Urine Color Urine Clarity Urine pH Ur Specific [employer] Urine Protein Urine Glucose (UA) Urine Ketones Urine Occult Blood Urine Nitrate Urine Bilirubin Urine Urobilinogen Ur Leukocyte Esterase Urine RBC Urine WBC Urine Mucus Micro UA Comment Ur Microscopic Review Urine Culture Comments Nasal Screen MRSA (PCR) Blood Type Blood Type Recheck Antibody Screen 11/30/18 11/30/18 11/30/18 11:50 13:45 17:43 WBC RBC Hgb Hct MCV MCH MCHC RDW Plt Count MPV Neut % (Auto) Lymph % (Auto) [place] % (Auto) Eos % (Auto) Baso % (Auto) Neut # (Auto) Lymph # (Auto) [place] # (Auto) Eos # (Auto) Baso # (Auto) WBC Differential Differential Comment PT INR APTT Sodium Potassium Chloride Carbon Dioxide Anion Gap BUN Creatinine Estimated GFR POC Glucose 124 H Random Glucose Calcium Magnesium Total Bilirubin AST ALT Alkaline Phosphatase Total Protein Albumin Lipase Urine Color Yellow Urine Clarity Clear Urine pH 7.0 Ur Specific [employer] 1.014 Urine Protein Negative Urine Glucose (UA) Negative Urine Ketones Negative Urine Occult Blood Negative Urine Nitrate Negative Urine Bilirubin Negative Urine Urobilinogen Less than 2 Ur Leukocyte Esterase Negative Urine RBC 1 Urine WBC 2 Urine Mucus Few H Micro UA Comment Culture not ind Ur Microscopic Review Not Reportable Urine Culture Comments Culture not ind Nasal Screen MRSA (PCR) Blood Type A Positive Blood Type Recheck Required Antibody Screen Negative 11/30/18 11/30/18 11/30/18 18:15 18:30 19:45 WBC RBC Hgb 11.6 L D Hct 33.8 L MCV MCH MCHC RDW Plt Count MPV Neut % (Auto) Lymph % (Auto) [place] % (Auto) Eos % (Auto) Baso % (Auto) Neut # (Auto) Lymph # (Auto) [place] # (Auto) Eos # (Auto) Baso # (Auto) WBC Differential Differential Comment PT INR APTT Sodium Potassium Chloride Carbon Dioxide Anion Gap BUN Creatinine Estimated GFR POC Glucose 127 H Random Glucose Calcium Magnesium Total Bilirubin AST ALT Alkaline Phosphatase Total Protein Albumin Lipase Urine Color Urine Clarity Urine pH Ur Specific [employer] Mdl Urine Protein Urine Glucose (UA) Urine Ketones Urine Occult Blood Urine Nitrate Urine Bilirubin Urine Urobilinogen Ur Leukocyte Esterase Urine RBC Urine WBC Urine Mucus Micro UA Comment Ur Microscopic Review Urine Culture Comments Nasal Screen MRSA (PCR) Not detected Blood Type Blood Type Recheck Antibody Screen 11/30/18 11/30/18 12/01/18 22:38 23:36 03:11 WBC RBC Hgb 10.9 L 10.9 L Hct 31.8 L 31.5 L MCV MCH MCHC RDW Plt Count MPV Neut % (Auto) Lymph % (Auto) [place] % (Auto) Eos % (Auto) Baso % (Auto) Neut # (Auto) Lymph # (Auto) [place] # (Auto) Eos # (Auto) Baso # (Auto) WBC Differential Differential Comment PT INR APTT Sodium Potassium Chloride Carbon Dioxide Anion Gap BUN Creatinine Estimated GFR POC Glucose 193 H Random Glucose Calcium Magnesium Total Bilirubin AST ALT Alkaline Phosphatase Total Protein Albumin Lipase Urine Color Urine Clarity Urine pH Ur Specific [employer] Mdl Urine Protein Urine Glucose (UA) Urine Ketones Urine Occult Blood Urine Nitrate Urine Bilirubin Urine Urobilinogen Ur Leukocyte Esterase Urine RBC Urine WBC Urine Mucus Micro UA Comment Ur Microscopic Review Urine Culture Comments Nasal Screen MRSA (PCR) Blood Type Blood Type Recheck Antibody Screen 12/01/18 12/01/18 12/01/18 05:29 05:29 07:53 WBC RBC Hgb 11.2 L Hct 32.0 L MCV MCH MCHC RDW Plt Count MPV Neut % (Auto) Lymph % (Auto) [place] % (Auto) Eos % (Auto) Baso % (Auto) Neut # (Auto) Lymph # (Auto) [place] # (Auto) Eos # (Auto) Baso # (Auto) WBC Differential Differential Comment PT INR APTT Sodium 139 Potassium 4.2 Chloride 104 Carbon Dioxide 27.1 Anion Gap 8 BUN 8 Creatinine 0.62 Estimated GFR Greater than 89 POC Glucose 181 H Random Glucose 143 H Calcium 9.0 D Magnesium 2.1 Total Bilirubin AST ALT Alkaline Phosphatase Total Protein Albumin Lipase Urine Color Urine Clarity Urine pH Ur Specific [employer] Mdl Urine Protein Urine Glucose (UA) Urine Ketones Urine Occult Blood Urine Nitrate Urine Bilirubin Urine Urobilinogen Ur Leukocyte Esterase Urine RBC Urine WBC Urine Mucus Micro UA Comment Ur Microscopic Review Urine Culture Comments Nasal Screen MRSA (PCR) Blood Type Blood Type Recheck Antibody Screen - Imaging Impressions Abdomen/Pelvis CTA 11/30/18 00:00 CONCLUSION: 1. No acute abnormality.. No active source of hemorrhage observed. 2. Diverticulosis of the colon. Abdomen/Pelvis CT 11/30/18 11:44 CONCLUSION: 1. Diverticuli sigmoid colon without diverticulitis 2. Perirectal tissues appear normal 3. I do not see inflammatory changes to account for the left lower quadrant pain. Assessment and Plan (1) Excessive use of nonsteroidal anti-inflammatory drugs (NSAIDs) Status: Acute Code(s): F19.90 - Other psychoactive substance use, unspecified , uncomplicated (2) GI bleed Status: Acute Code(s): K92.2 - Gastrointestinal hemorrhage, unspecified (3) Hematochezia Status: Acute Code(s): K92.1 - Melena - Plan 11/30/2018 This is a pleasant 78-year-old with significant medical history of diverticulitis diverticulosis diabetes type 2 hypertension who came in with rectal bleeding started 2 days ago. Patient had TURP done for prostate cancer. Patient noted over a week that his stool is dark red and today had a massive bowel movement with bright red per rectum which made the patient to be lightheaded and diaphoretic prompting him to come for an ER visit for evaluation. Patient denies having profuse rectal bleeding in the past although he admits that he had diverticulosis with his last colonoscopy. at the ED patient had several more episodes of nannette bleeding per rectum with some clots associated with mild diffuse abdominal discomfort. Patient denies any nausea vomiting. No fever the past 24 hours. Patient does not remember any EGD. had colonoscopy done several years ago and and was told to have diverticulosis. Patient admits to taking daily ibuprofen and aspirin for his osteoarthritis after his fall. Patient denies any cardiac issues or any anticoagulant taken at home. our service is consulted for GI bleed/rectal bleeding. Assessment Hematochezia GI bleeding NSAIDs abuse CTA done 11/30/2018 showed No acute abnormality.. No active source of hemorrhage observed. Diverticulosis of the colon. 12/01/2018 GI bleed in light of NSAID overuse Colon prep completed this a.m.--EGD: In a.m. as per Dr. Chavez to allow for for complete evacuation of colon No reported bleeding post prep --Hemoglobin 11.2 hematocrit 32.0-- No reported abdominal pain nausea or vomiting Plan -Clear liquid diet -N.p.o. after midnight -EGD colonoscopy in the a.m. -Monitor hemoglobin and hematocrit closely-serial hemoglobin and hematocrit every 6 hours -Pantoprazole 40 mg IV push every 12 hours -Antiemetics as per attending -Bleeding scan -Type and hold 2 units packed RBCs for transfusion if needed -Avoid NSAIDs -Avoid anticoagulants -Supportive care -Further recommendations to follow This patient has been seen by myself and Dr. Chavez and this note is written on his been - Attending Attestation Dr. Chavez (2) GI bleed Qualifiers: GI bleed type/associated pathology: unspecified gastrointestinal hemorrhage type Qualified Code(s): K92.2 - Gastrointestinal hemorrhage, unspecified
--- NOTE | 2018-12-01 13:32 | P.CODE44 ---
Code 44 - Inpatient to Obs - Code 44 - Inpatient to Obs Statement: A clinical review of the case has been conducted by a member of the Utilization Review Committee. The findings indicate the patient meets criteria for observation status. The information and decision has been discussed with the attending physician Norman Garcia MD and physician provider Rebeca Cox MD.
[2018-12-01 14:25] LABS: Hematocrit 26.5 % (39.0-51.0); Hemoglobin 9.2 gm/dL (13.0-17.0)
--- NOTE | 2018-12-01 19:36 | NM ---
EXAM DATE: 12/01/2018 7:25 PM EST AGE/SEX: 78 years / Male INDICATIONS: Rectal bleeding. CLINICAL DATA: This is the patient's initial encounter. Patient reports that signs and symptoms have been present for 2 days and indicates a pain score of 2/10. MEDICAL/SURGICAL HISTORY: Diverticulosis. Diabetes mellitus type II. Hypertension. . TURP. COMPARISON: [facility], CTA ABDOMEN & PELVIS W CONTRAST W 3D, 11/30/2018. . TECHNIQUE: Following the modified in vitro labeling of autologous red cells, dynamic continuous image s were acquired for two hours. ?? DOSE: 20.2 mCi Tc 99m Ultratag Labeled Red Blood Cells IV IMAGING TIME: 2 hr FINDINGS: Biodistribution: Source of hemorrhage is in the left upper quadrant probably associated with the col on however small bowel is looped tightly underneath the splenic flexure on the CT scan of 11/30/2018. There is contrast extending across the midline to the right that contrast in either small bowel or co adriel. I would favor: On the left upper quadrant source. CONCLUSION: 1. Left upper quadrant source, probably splenic flexure Electronically signed by: Arpan Moran MD Board Certified Radiologist 12/01/2018 7:34 PM EST
[2018-12-01 21:02] LABS: Hematocrit 25.4 % (39.0-51.0); Hemoglobin 8.8 gm/dL (13.0-17.0)
[2018-12-02 03:24] LABS: Baso # (Auto) 0.1 th/mm3 (0.0-0.2); Baso % (Auto) 0.7 % (0.0-2.0); Eos # (Auto) 0.2 th/mm3 (0.0-0.4); Eos % (Auto) 2.7 % (0.0-4.0); Hematocrit 24.1 % (39.0-51.0); Hemoglobin 8.4 gm/dL (13.0-17.0); Lymph # (Auto) 1.4 th/mm3 (1.0-4.8); Lymph % (Auto) 15.2 % (9.0-44.0); Mean Corpuscular HGB Conc 34.8 % (32.0-36.0); Mean Corpuscular Hemoglobin 30.3 pg (27.0-34.0); Mean Corpuscular Volume 87.1 fL (80.0-100.0); Mean Platelet Volume 7.1 fL (7.0-11.0); Mono # (Auto) 0.8 th/mm3 (0.0-0.9); Mono % (Auto) 8.6 % (0.0-8.0); Neut # (Auto) 6.6 th/mm3 (1.8-7.7); Neut % (Auto) 72.8 % (16.0-70.0); Platelet Count 210 th/mm3 (150-450); Red Blood Count 2.77 mil/mm3 (4.50-5.90); Red Cell Distribution Width 14.4 % (11.6-17.2); White Blood Count 9.1 th/mm3 (4.0-11.0)
[2018-12-02] MEDS: PEG 3350/E-Lyte Soln 4000 ML Bottle PO SCH (05:27)
[2018-12-02] MEDS: Chlorhexidine Gluconate 2% 1 Pack (2 Cloths) TOPICAL SCH (05:27)
[2018-12-02] MEDS: Sod Chloride 0.9% Inj 1,000 ML IV.CONT SCH ×2 (06:38→17:36)
[2018-12-02] MEDS: Insulin NovoLOG Aspart Correctional Sugar Inj SQ SCH ×4 (08:51→21:03)
[2018-12-02] MEDS: Pantoprazole Inj 40 MG Vial IV.PUSH SCH ×2 (08:57→21:01)
[2018-12-02] MEDS ORDERED: Chlorhexidine Gluconate 2% 1 Pack (2 Cloths) TOPICAL ONE (09:43)
[2018-12-02] MEDS ORDERED: Metoprolol Tartrate 25 MG Tablet PO ONE (09:43)
--- NOTE | 2018-12-02 09:44 | P.PNIM ---
Subjective Interval history: Pt off the floor for EGD/colonoscopy Will re-evaluate upon return to the floor Physical Exam Vital signs: Last Vital Signs Temp 98 F 12/02/18 07:28 Pulse 93 H 12/02/18 07:28 Resp 17 12/02/18 07:28 BP 176/78 H 12/02/18 07:28 Pulse Ox 97 12/02/18 07:25 Results Labs CBC & Chem 7: 12/02/18 03:08 12/01/18 05:29 Imaging Abdomen/Pelvis CTA 11/30/18 00:00 CONCLUSION: 1. No acute abnormality.. No active source of hemorrhage observed. 2. Diverticulosis of the colon. Abdomen/Pelvis CT 11/30/18 11:44 CONCLUSION: 1. Diverticuli sigmoid colon without diverticulitis 2. Perirectal tissues appear normal 3. I do not see inflammatory changes to account for the left lower quadrant pain. GI Bleed Scan Nuclear Medicine 12/01/18 15:38 CONCLUSION: 1. Left upper quadrant source, probably splenic flexure Assessment and Plan Assessment (1) Excessive use of nonsteroidal anti-inflammatory drugs (NSAIDs): Code(s): F19.90 - Other psychoactive substance use, unspecified, uncomplicated Status: Acute (2) GI bleed: Code(s): K92.2 - Gastrointestinal hemorrhage, unspecified Status: Acute (3) Hematochezia: Code(s): K92.1 - Melena Status: Acute Plan Hematochezia GI bleeding NSAIDs use - Pt is a 78 y/o male with hx of diverticulitis/diverticulosis, diabetes type 2 , and hypertension who presented to the ED on 11/30/18 with rectal bleeding which started 2 days prior. Patient had TURP done for prostate cancer. Patient noted over a week that his stool is dark red and on the day of admission he had a massive bowel movement with bright red per rectum and he became lightheaded and diaphoretic prompting him to come for an ER for evaluation. Pt reportedly uses ASA and Ibuprofen daily for arthritis pain - In the ED patient had several more episodes of nannette bleeding per rectum with some clots associated with mild diffuse abdominal discomfort. - CTA done 11/30/2018 showed No acute abnormality, no active source of hemorrhage observed, diverticulosis of the colon - Pt had repeat episodes of rectal bleeding and passing some clots on 12/01 - H/H has decreased during admission, more so yesterday going from Hgb 11.2 --> 9.2 --> 8.8 --> 8.4 - Pt had GIB scan on 12/01 --> Left upper quadrant source, probably splenic flexure - Pt currently undergoing evaluation with EGD/colonoscopy on 12/02 - Pt is on IVF - Cont. PPI HTN - Home meds on hold for now - PRN BP control Diabetes mellitus, type 2 - NovoLog SSI - Accu chekcs - OHA are on hold Progress Note: Quality VTE Deep Vein Thrombosis/Pulmonary Embolism Present on Admission: No _ (1) GI bleed Qualifiers: GI bleed type/associated pathology: unspecified gastrointestinal hemorrhage type Gastritis type: Qualified Code(s): K92.2 - Gastrointestinal hemorrhage, unspecified
[2018-12-02] MEDS ORDERED: Sodium Chlor 0.9% Inj 500 ML IV.SIG SCH (10:00)
[2018-12-02] MEDS ORDERED: Lidocaine PF 1% Inj 5 ML Syringe OTHER ONE (10:07)
--- NOTE | 2018-12-02 10:49 | GIPROC ---
[facility] [address] [facility]. [facility], [address] EGD PROCEDURE REPORT EXAM DATE: 12/02/2018 PATIENT NAME: Colby Quiroz MR #: [id number] BIRTHDATE: 1940 ATTENDING: Chad Chavez MD ORDER #: [id number] MARKETING OFFICER: Luis F Mendoza and Stephie Barnes STATUS: inpatient INDICATIONS: The patient is a 78 yr old male here for an EGD due to hematochezia PROCEDURE PERFORMED: EGD, diagnostic MEDICATIONS: Per Anesthesia and None. TOPICAL ANESTHETIC: none CONSENT: The patient understands the risks and benefits of the procedure and understands that these risks include, but are not limited to: sedation, allergic reaction, infection, perforation and/or bleeding. Alternative means of evaluation and treatment include, among others: physical exam, x-rays, and/or surgical intervention. The patient elects to proceed with this endoscopic procedure. medical equipment was checked for proper function. Hand hygiene and appropriate measures for infection prevention was taken. After the risks, benefits and alternatives of the procedure were thoroughly explained, Informed consent was verified, confirmed and timeout was successfully executed by the treatment team. The patient was anesthetized with topical anesthesia and the xCloudax EG-[id number] endoscope was introduced through the mouth and advanced to the second portion of the duodenum. Retroflexed views revealed a hiatal hernia The gastroscope was then slowly withdrawn and removed. ESOPHAGUS: There was LA Class A esophagitis noted. Widely patent stricture, distal esophagus. STOMACH: The mucosa of the stomach appeared normal. DUODENUM: The duodenal mucosa appeared normal in the entire duodenum. ADVERSE EVENTS: There were no complications. IMPRESSIONS: 1. There was LA Class A esophagitis noted 2. Widely patent stricture, distal esophagus 3. The mucosa of the stomach appeared normal 4. Normal duodenal mucosa in the entire duodenum 5. Retroflexed views revealed a hiatal hernia RECOMMENDATIONS: Colonoscopy PATIENT CONDITION: stable DISPOSITION: Inpatient REPEAT EXAM: Return as needed for EGD Chad Chavez MD eSigned: Chad Chavez MD 12/02/2018 10:49 AM cc: PATIENT NAME: Colby Quiroz MR#: [id number]
--- NOTE | 2018-12-02 11:04 | GIPROC ---
[facility] [address] [facility]. [facility], [address] COLONOSCOPY PROCEDURE REPORT EXAM DATE: 12/02/2018 PATIENT NAME: Colby Quiroz MR #: [id number] BIRTHDATE: 1940 ENDOSCOPIST: Chad Chavez MD ORDER #: [id number] SELF PAY SPECIALIST: Luis F Mendoza and Stephie Barnes STATUS: inpatient INDICATIONS: The patient is a 78 yr old male here for a colonoscopy due to hematochezia and Positive bleeding scan PROCEDURE PERFORMED: Colonoscopy, diagnostic MEDICATIONS: Per Anesthesia and None. PREP QUALITY: poor ESTIMATED BLOOD LOSS: None CONSENT: The patient understands the risks and benefits of the procedure and understands that these risks include, but are not limited to: sedation, allergic reaction, infection, perforation and/or bleeding. Alternative means of evaluation and treatment include, among others: physical exam, x-rays, and/or surgical intervention. The patient elects to proceed with this endoscopic procedure. medical equipment was checked for proper function. Hand hygiene and appropriate measures for infection prevention was taken. After the risks, benefits and alternatives of the procedure were thoroughly explained, Informed consent was verified, confirmed and timeout was successfully executed by the treatment team. A digital exam was performed and revealed no abnormalities of the rectum The EG-[id number] (Std Gastro) and Pentax [id number] endoscope was introduced through the anus and advanced to the cecum, which was identified by both the appendix and ileocecal valve. The instrument was then slowly withdrawn as the colon was fully examined. COLON FINDINGS: Moderate diverticulosis was noted in the descending colon and sigmoid colon.Fresh blood clots seen all over entire colon, Distal left colon had mosct amount of clots. frThe scope was then completely withdrawn from the patient and the procedure terminated. PROCEDURE WITHDRAWAL TIME:10minutes ADVERSE EVENTS: There were no complications. IMPRESSIONS: 1. Moderate diverticulosis was noted in the descending colon and sigmoid colon 2. Active diverticular bleeding. No site of active bleeding seen RECOMMENDATIONS: Angiogram possible TAE RECALL: Return 1 year Colonoscopy Chad Chavez MD eSigned: Chad Chavez MD 12/02/2018 11:03 AM cc: PATIENT NAME: Colby Quiroz MR#: [id number]
[2018-12-02] MEDS ORDERED: fentaNYL Citrate Inj 250 MCG/5 ML Ampul ONE (12:50)
[2018-12-02] MEDS ORDERED: Labetalol HCl Inj 20 MG/4 ML Vial ONE (13:43)
--- NOTE | 2018-12-02 15:13 | P.RAD ---
Post Procedure Progress Note - Pre Procedure Diagnosis (1) GI bleed - Post Procedure Diagnosis (1) GI bleed - Procedure Information Procedure Date: 12/02/18 Supervising Radiologist: Bolivar Lozano MD Anesthesia: Conscious Sedation - Plan of Activity Patient to Unit: Nursing Unit Patient Condition: Good See PACS Report for procedural detail/treatment. Vascular - Arterial Procedure Abdominal Procedure: Angiogram - Additional Information Findings: negative for gi bleed sma/nik
--- NOTE | 2018-12-02 16:08 | IR ---
EXAM DATE: 12/02/2018 2:59 PM EST AGE/SEX: 78 years / Male INDICATIONS: Patient with no history of colon cancer. Noticed bright red bowel movement. CLINICAL DATA: This is the patient's initial encounter. Patient reports that signs and symptoms have been present for 1 day and indicates a pain score of 0/10. MEDICAL/SURGICAL HISTORY: Hypertension. Diabetes. Diverticulosis. BPH . TURP, COLONOSCOPY. COMPARISON: No prior exams available for comparison. FLUORO TIME (min): 18.4 IMAGE SERIES: 14 RADIATION DOSE: 1865 mGy CAK ACCESS SITE: Right femoral artery SEDATION TIME (min): 30 CONTRAST (cc): 110 cc Visipaque (iodixanol) MEDICATION(S): 1.5 mg midazolam (Versed) IV ; 75 mcg fentanyl (Sublimaze) IV ; ; ; DEVICE(S): Right common femoral artery Syvek pad ; ; ; ; ; ; . . PROCEDURE : 1. Ultrasound-guided puncture of the access site. 2. Conscious sedation with continuous EKG and Oximetry monitoring. 3. Angiography of the superior mesenteric artery 4. Angiography of the inferior mesenteric artery The risks, benefits and alternatives to the procedure were explained and verbal and written consent w as obtained. The site was prepped in sterile fashion. Full sterile technique was used, including ca p, mask, sterile gloves and gown and a large sterile sheet. Hand hygiene and 2% chlorhexidine and/or betadine/alcohol prep was utilized per protocol for cutaneous antisepsis. Sterile gel and sterile p robe cover were utilized for ultrasound guidance. The skin and subcutaneous tissues were infiltrated with local anesthetic solution. With ultrasound and fluoroscopic guidance the selected artery was punctured and a vascular sheath was placed. Atrial catheters placed the superior mesenteric artery where AP oblique views were obtained to evalua te the vasculature. Following this the catheter was advanced into the inferior mesenteric artery wher e again AP and oblique views were obtained. A questionable bleeding site was identified involving the sigmoid colon and subselective catheterization into a second-order branch was performed to further e valuate this. A bleeding site was not identified. The puncture site was closed with manual pressure and hemostasis was obtained. The patient tolerated the procedure well and there were no complications. Conscious sedation was performed with the prescribed dosages and duration as above in the presence of an independent trained radiology nurse to assist in the monitoring of the patient. EKG and oximetry remained stable throughout the procedure. CONCLUSION: 1. No evidence of acute gastrointestinal bleed. Electronically signed by: Bolivar Lozano MD Board Certified Radiologist 12/02/2018 4:07 PM EST
[2018-12-02 19:17] LABS: Hematocrit 29.3 % (39.0-51.0); Hemoglobin 10.5 gm/dL (13.0-17.0)
[2018-12-03] MEDS: Sod Chloride 0.9% Inj 1,000 ML IV.CONT SCH ×3 (02:03→15:47)
[2018-12-03] MEDS: Chlorhexidine Gluconate 2% 1 Pack (2 Cloths) TOPICAL SCH (06:10)
[2018-12-03] MEDS: Insulin NovoLOG Aspart Correctional Sugar Inj SQ SCH ×4 (09:22→21:37)
[2018-12-03] MEDS: Pantoprazole Inj 40 MG Vial IV.PUSH SCH ×2 (09:31→21:37)
--- NOTE | 2018-12-03 09:36 | P.PNIM ---
Subjective Interval history: lying comfortabley in bed no bleeding overnight. Physical Exam Vital signs: Last Vital Signs Temp 98.1 F 12/03/18 08:01 Pulse 91 H 12/03/18 08:01 Resp 18 12/03/18 08:01 BP 154/74 H 12/03/18 08:01 Pulse Ox 97 12/03/18 08:01 Narrative: heart reg lung cta abd s/nt ext no edema Results Labs CBC & Chem 7: 12/02/18 18:11 12/01/18 05:29 Assessment and Plan Assessment (1) Excessive use of nonsteroidal anti-inflammatory drugs (NSAIDs): Code(s): F19.90 - Other psychoactive substance use, unspecified, uncomplicated Status: Acute (2) GI bleed: Code(s): K92.2 - Gastrointestinal hemorrhage, unspecified Status: Acute (3) Hematochezia: Code(s): K92.1 - Melena Status: Acute Plan Hematochezia GI bleeding NSAIDs use - Pt is a 78 y/o male with hx of diverticulitis/diverticulosis, diabetes type 2 , and hypertension who presented to the ED on 11/30/18 with rectal bleeding which started 2 days prior. Patient had TURP done for prostate cancer. Patient noted over a week that his stool is dark red and on the day of admission he had a massive bowel movement with bright red per rectum and he became lightheaded and diaphoretic prompting him to come for an ER for evaluation. Pt reportedly uses ASA and Ibuprofen daily for arthritis pain - In the ED patient had several more episodes of nannette bleeding per rectum with some clots associated with mild diffuse abdominal discomfort. - CTA done 11/30/2018 showed No acute abnormality, no active source of hemorrhage observed, diverticulosis of the colon - Pt had repeat episodes of rectal bleeding and passing some clots on 12/01 - Pt had GIB scan on 12/01 --> Left upper quadrant source, probably splenic flexure - egd/colon 12/02..alot of fresh blood thoughout colon but alot of diverticulosis. -angiography by radiology 12/02...no bleeding nik/sma. - 2 units prbc 12/02 continue to monitor for bleeding h/h stable prbc as needed. on clears. advance per GI cont ppi HTN resumed home bp med stable Diabetes mellitus, type 2 - NovoLog SSI - Accu chekcs - OHA are on hold Progress Note: Quality VTE Deep Vein Thrombosis/Pulmonary Embolism Present on Admission: No _ (1) GI bleed Qualifiers: GI bleed type/associated pathology: unspecified gastrointestinal hemorrhage type Gastritis type: Qualified Code(s): K92.2 - Gastrointestinal hemorrhage, unspecified
[2018-12-03 14:58] LABS: Baso # (Auto) 0.1 th/mm3 (0.0-0.2); Baso % (Auto) 0.7 % (0.0-2.0); Eos # (Auto) 0.4 th/mm3 (0.0-0.4); Eos % (Auto) 5.3 % (0.0-4.0); Hematocrit 27.4 % (39.0-51.0); Hemoglobin 9.5 gm/dL (13.0-17.0); Lymph # (Auto) 1.3 th/mm3 (1.0-4.8); Lymph % (Auto) 18.2 % (9.0-44.0); Mean Corpuscular HGB Conc 34.7 % (32.0-36.0); Mean Corpuscular Hemoglobin 30.2 pg (27.0-34.0); Mean Corpuscular Volume 87.1 fL (80.0-100.0); Mean Platelet Volume 7.3 fL (7.0-11.0); Mono # (Auto) 0.5 th/mm3 (0.0-0.9); Mono % (Auto) 7.5 % (0.0-8.0); Neut # (Auto) 4.9 th/mm3 (1.8-7.7); Neut % (Auto) 68.3 % (16.0-70.0); Platelet Count 189 th/mm3 (150-450); Red Blood Count 3.15 mil/mm3 (4.50-5.90); Red Cell Distribution Width 14.8 % (11.6-17.2); White Blood Count 7.2 th/mm3 (4.0-11.0)
[2018-12-03 15:17] LABS: Anion Gap 8 meq/L (5-15); Blood Urea Nitrogen 5 mg/dL (7-18); Calcium 8.5 mg/dL (8.5-10.1); Carbon Dioxide 25.2 meq/L (21.0-32.0); Chloride 107 meq/L (98-107); Glomerular Filtration Rate Greater Than 89 mL/min (>89); Glucose,Random 170 mg/dL (74-106); Potassium 3.6 meq/L (3.5-5.1); Sodium 140 meq/L (136-145)
--- NOTE | 2018-12-03 17:35 | P.PNGI ---
Subjective Interval history: Patient seen and examined. Resting comfortably. at bedside. No bowel movements today. No rectal bleeding today. Tolerating liquid diet. Hemoglobin and hematocrit today 9.5/27.4 <Trang Ta - Last Filed: 12/03/18 17:26> Physical Exam Vital signs: Vital Signs 12/02/18 17:56 12/02/18 20:15 12/03/18 00:15 Temperature 97.7 F 97.8 F Pulse Rate 86 91 H 85 Respiratory Rate 20 19 20 Blood Pressure 200/88 H 114/59 L 132/63 Pulse Oximetry 96 98 97 12/03/18 05:20 12/03/18 08:01 12/03/18 11:36 Temperature 97.7 F 98.1 F 98.1 F Pulse Rate 94 H 91 H 81 Respiratory Rate 17 18 16 Blood Pressure 147/70 H 154/74 H 138/80 Pulse Oximetry 99 97 97 12/03/18 16:03 Temperature 98.4 F Pulse Rate 79 Respiratory Rate 16 Blood Pressure 163/73 H Pulse Oximetry 99 Intake & Output 12/02/18 12/03/18 12/03/18 18:59 06:59 18:59 Intake Total 700 / 700 1000 / 1000 Output Total 550 / 550 Balance 150 / 150 1000 / 1000 Intake: IV 1000 / 1000 NS Inj 1,000 ML @ 100 mls/hr IV 1000 / 1000 .CONT .Q10H [facility] Rx#:[id number] Anesthesia Amount 300 / 300 Intake (Blood Product) Amt 400 / 400 Rbc As-3 Leukoreduced Unit 400 / 400 [id number] Output: Urine 550 / 550 Other: # Voids 2 Date of Last Bowel Movement 12/02/18 # Bowel Movements 1 <Trang Ta - Last Filed: 12/03/18 17:26> Vital signs: Vital Signs 12/03/18 00:15 12/03/18 05:20 12/03/18 08:01 Temperature 97.8 F 97.7 F 98.1 F Pulse Rate 85 94 H 91 H Respiratory Rate 20 17 18 Blood Pressure 132/63 147/70 H 154/74 H Pulse Oximetry 97 99 97 12/03/18 11:36 12/03/18 16:03 12/03/18 21:15 Temperature 98.1 F 98.4 F 97.7 F Pulse Rate 81 79 89 Respiratory Rate 16 16 20 Blood Pressure 138/80 163/73 H 172/76 H Pulse Oximetry 97 99 97 Intake & Output 12/03/18 12/03/18 12/04/18 06:59 18:59 06:59 Intake Total 1000 / 1000 Balance 1000 / 1000 Intake: IV 1000 / 1000 NS Inj 1,000 ML @ 100 mls/hr IV 1000 / 1000 .CONT .Q10H [facility] Rx#:[id number] Other: # Voids 2 4 Date of Last Bowel Movement 12/02/18 # Bowel Movements 1 <Bobby Finley E - Last Filed: 12/03/18 22:10> Results - Labs CBC & Chem 7: 12/03/18 14:32 12/03/18 14:32 Laboratory Results - last 24 hr 12/02/18 12/02/18 12/03/18 18:11 21:03 07:37 WBC RBC Hgb 10.5 L D Hct 29.3 L MCV MCH MCHC RDW Plt Count MPV Neut % (Auto) Lymph % (Auto) [place] % (Auto) Eos % (Auto) Baso % (Auto) Neut # (Auto) Lymph # (Auto) [place] # (Auto) Eos # (Auto) Baso # (Auto) WBC Differential Differential Comment Sodium Potassium Chloride Carbon Dioxide Anion Gap BUN Creatinine Estimated GFR POC Glucose 257 H 176 H Random Glucose Calcium 12/03/18 12/03/18 12/03/18 11:45 14:32 14:32 WBC 7.2 RBC 3.15 L Hgb 9.5 L Hct 27.4 L MCV 87.1 MCH 30.2 MCHC 34.7 RDW 14.8 Plt Count 189 MPV 7.3 Neut % (Auto) 68.3 Lymph % (Auto) 18.2 [place] % (Auto) 7.5 Eos % (Auto) 5.3 H Baso % (Auto) 0.7 Neut # (Auto) 4.9 Lymph # (Auto) 1.3 [place] # (Auto) 0.5 Eos # (Auto) 0.4 Baso # (Auto) 0.1 WBC Differential . Differential Comment Auto diff final Sodium 140 Potassium 3.6 Chloride 107 Carbon Dioxide 25.2 Anion Gap 8 BUN 5 L Creatinine 0.71 Estimated GFR Greater than 89 POC Glucose 195 H Random Glucose 170 H Calcium 8.5 12/03/18 16:58 WBC RBC Hgb Hct MCV MCH MCHC RDW Plt Count MPV Neut % (Auto) Lymph % (Auto) [place] % (Auto) Eos % (Auto) Baso % (Auto) Neut # (Auto) Lymph # (Auto) [place] # (Auto) Eos # (Auto) Baso # (Auto) WBC Differential Differential Comment Sodium Potassium Chloride Carbon Dioxide Anion Gap BUN Creatinine Estimated GFR POC Glucose 176 H Random Glucose Calcium <Trang Ta - Last Filed: 12/03/18 17:26> - Labs CBC & Chem 7: 12/03/18 14:32 12/03/18 14:32 Laboratory Results - last 24 hr 12/03/18 12/03/18 12/03/18 07:37 11:45 14:32 WBC 7.2 RBC 3.15 L Hgb 9.5 L Hct 27.4 L MCV 87.1 MCH 30.2 MCHC 34.7 RDW 14.8 Plt Count 189 MPV 7.3 Neut % (Auto) 68.3 Lymph % (Auto) 18.2 [place] % (Auto) 7.5 Eos % (Auto) 5.3 H Baso % (Auto) 0.7 Neut # (Auto) 4.9 Lymph # (Auto) 1.3 [place] # (Auto) 0.5 Eos # (Auto) 0.4 Baso # (Auto) 0.1 WBC Differential . Differential Comment Auto diff final Sodium Potassium Chloride Carbon Dioxide Anion Gap BUN Creatinine Estimated GFR POC Glucose 176 H 195 H Random Glucose Calcium 12/03/18 12/03/18 12/03/18 14:32 16:58 20:37 WBC RBC Hgb Hct MCV MCH MCHC RDW Plt Count MPV Neut % (Auto) Lymph % (Auto) [place] % (Auto) Eos % (Auto) Baso % (Auto) Neut # (Auto) Lymph # (Auto) [place] # (Auto) Eos # (Auto) Baso # (Auto) WBC Differential Differential Comment Sodium 140 Potassium 3.6 Chloride 107 Carbon Dioxide 25.2 Anion Gap 8 BUN 5 L Creatinine 0.71 Estimated GFR Greater than 89 POC Glucose 176 H 175 H Random Glucose 170 H Calcium 8.5 <Bobby Finley - Last Filed: 12/03/18 22:10> Assessment and Plan (1) Excessive use of nonsteroidal anti-inflammatory drugs (NSAIDs) Status: Acute Code(s): F19.90 - Other psychoactive substance use, unspecified , uncomplicated (2) GI bleed Status: Acute Code(s): K92.2 - Gastrointestinal hemorrhage, unspecified (3) Hematochezia Status: Acute Code(s): K92.1 - Melena - Plan 11/30/2018 This is a pleasant 78-year-old with significant medical history of diverticulitis diverticulosis diabetes type 2 hypertension who came in with rectal bleeding started 2 days ago. Patient had TURP done for prostate cancer. Patient noted over a week that his stool is dark red and today had a massive bowel movement with bright red per rectum which made the patient to be lightheaded and diaphoretic prompting him to come for an ER visit for evaluation. Patient denies having profuse rectal bleeding in the past although he admits that he had diverticulosis with his last colonoscopy. at the ED patient had several more episodes of nannette bleeding per rectum with some clots associated with mild diffuse abdominal discomfort. Patient denies any nausea vomiting. No fever the past 24 hours. Patient does not remember any EGD. had colonoscopy done several years ago and and was told to have diverticulosis. Patient admits to taking daily ibuprofen and aspirin for his osteoarthritis after his fall. Patient denies any cardiac issues or any anticoagulant taken at home. our service is consulted for GI bleed/rectal bleeding. Assessment Hematochezia GI bleeding NSAIDs abuse CTA done 11/30/2018 showed No acute abnormality.. No active source of hemorrhage observed. Diverticulosis of the colon. 12/01/2018 GI bleed in light of NSAID overuse Colon prep completed this a.m.--EGD: In a.m. as per Dr. Chavez to allow for for complete evacuation of colon No reported bleeding post prep --Hemoglobin 11.2 hematocrit 32.0-- No reported abdominal pain nausea or vomiting Plan -Clear liquid diet -N.p.o. after midnight -EGD colonoscopy in the a.m. -Monitor hemoglobin and hematocrit closely-serial hemoglobin and hematocrit every 6 hours -Pantoprazole 40 mg IV push every 12 hours -Antiemetics as per attending -Bleeding scan -Type and hold 2 units packed RBCs for transfusion if needed -Avoid NSAIDs -Avoid anticoagulants -Supportive care -Further recommendations to follow This patient has been seen by myself and Dr. Chavez and this note is written on his been 12/03/2018 GI bleed in light of NSAID overuse EGD yesterday, esophagitis small hiatal hernia widely patent distal esophageal stricture. Colonoscopy yesterday moderate diverticulosis in the descending and sigmoid colon, fresh blood clots seen all over the entire colon but predominantly on the left. No evidence of active GI bleeding on mesenteric arteriogram. No bowel movements today, no hematochezia today. Hemoglobin 9.5, hematocrit 27.4 No abdominal pain or nausea. Tolerating liquid diet. Plan -Clear liquid diet -Monitor hemoglobin and hematocrit closely, serial H&H every 6 hours, transfuse as needed -Pantoprazole 40 mg IV push every 12 hours -Antiemetics as per attending -Avoid NSAIDs and anticoagulants -Supportive care -Further recommendations to follow The patient was seen and examined by myself and Dr. Finley and this note is written on his behalf <Trang Ta - Last Filed: 12/03/18 17:26> (1) Excessive use of nonsteroidal anti-inflammatory drugs (NSAIDs) Status: Acute Code(s): F19.90 - Other psychoactive substance use, unspecified , uncomplicated (2) GI bleed Status: Acute Code(s): K92.2 - Gastrointestinal hemorrhage, unspecified (3) Hematochezia Status: Acute Code(s): K92.1 - Melena - Attending Attestation Patient seen and examined Agree with above Continue with current supportive care Monitor labs <Bobby Finley E - Last Filed: 12/03/18 22:10> <Trang Ta - Last Filed: 12/03/18 17:26> (2) GI bleed Qualifiers: GI bleed type/associated pathology: unspecified gastrointestinal hemorrhage type Qualified Code(s): K92.2 - Gastrointestinal hemorrhage, unspecified <Bobby Finley E - Last Filed: 12/03/18 22:10> (2) GI bleed Qualifiers: GI bleed type/associated pathology: unspecified gastrointestinal hemorrhage type Qualified Code(s): K92.2 - Gastrointestinal hemorrhage, unspecified
[2018-12-04] MEDS: Sod Chloride 0.9% Inj 1,000 ML IV.CONT SCH ×2 (01:57→15:11)
[2018-12-04] MEDS: Chlorhexidine Gluconate 2% 1 Pack (2 Cloths) TOPICAL SCH (03:34)
[2018-12-04 07:24] LABS: Baso % (Auto) 0.6 % (0.0-2.0); Eos # (Auto) 0.4 th/mm3 (0.0-0.4); Eos % (Auto) 5.9 % (0.0-4.0); Hematocrit 28.3 % (39.0-51.0); Hemoglobin 9.9 gm/dL (13.0-17.0); Lymph # (Auto) 1.1 th/mm3 (1.0-4.8); Lymph % (Auto) 15.3 % (9.0-44.0); Mean Corpuscular Hemoglobin 30.4 pg (27.0-34.0); Mean Corpuscular Volume 86.9 fL (80.0-100.0); Mean Platelet Volume 7.4 fL (7.0-11.0); Mono # (Auto) 0.6 th/mm3 (0.0-0.9); Mono % (Auto) 7.5 % (0.0-8.0); Neut # (Auto) 5.2 th/mm3 (1.8-7.7); Neut % (Auto) 70.7 % (16.0-70.0); Platelet Count 220 th/mm3 (150-450); Red Blood Count 3.26 mil/mm3 (4.50-5.90); Red Cell Distribution Width 14.4 % (11.6-17.2); White Blood Count 7.3 th/mm3 (4.0-11.0)
[2018-12-04] MEDS: Pantoprazole Inj 40 MG Vial IV.PUSH SCH ×2 (08:10→20:39)
[2018-12-04] MEDS: Insulin NovoLOG Aspart Correctional Sugar Inj SQ SCH ×4 (08:15→22:17)
--- NOTE | 2018-12-04 10:37 | P.PNIM ---
Subjective Interval history: Pt had a small BM in his depends this morning with some maroon colored blood noted Denies any abd pain Tolerating clear liquid diet Physical Exam Vital signs: Last Vital Signs Temp 97.7 F 12/04/18 08:00 Pulse 85 12/04/18 08:00 Resp 18 12/04/18 08:00 BP 150/80 H 12/04/18 08:00 Pulse Ox 97 12/04/18 08:00 Narrative: heart reg lung cta abd s/nt ext no edema Results Labs CBC & Chem 7: 12/04/18 06:36 12/03/18 14:32 Assessment and Plan Assessment (1) Excessive use of nonsteroidal anti-inflammatory drugs (NSAIDs): Code(s): F19.90 - Other psychoactive substance use, unspecified, uncomplicated Status: Acute (2) GI bleed: Code(s): K92.2 - Gastrointestinal hemorrhage, unspecified Status: Acute (3) Hematochezia: Code(s): K92.1 - Melena Status: Acute Plan Hematochezia GI bleeding NSAIDs use - Pt is a 78 y/o male with hx of diverticulitis/diverticulosis, diabetes type 2 , and hypertension who presented to the ED on 11/30/18 with rectal bleeding which started 2 days prior. Patient had TURP done for prostate cancer. Patient noted over a week that his stool is dark red and on the day of admission he had a massive bowel movement with bright red per rectum and he became lightheaded and diaphoretic prompting him to come for an ER for evaluation. Pt reportedly uses ASA and Ibuprofen daily for arthritis pain - In the ED patient had several more episodes of nannette bleeding per rectum with some clots associated with mild diffuse abdominal discomfort. - CTA done 11/30/2018 showed No acute abnormality, no active source of hemorrhage observed, diverticulosis of the colon - Pt had repeat episodes of rectal bleeding and passing some clots on 12/01 - Pt had GIB scan on 12/01 --> Left upper quadrant source, probably splenic flexure - EGD/colon 12/02. A lot of fresh blood throughout colon but a lot of diverticulosis. - Angiography by radiology 12/02...no bleeding nik/sma. - Pt was given 2 units PRBCs 12/02 - h/h stable - Pt tolerating clear liquids, diet advancement per GI - Cont ppi - Stop IVF today HTN - Cont. home bp med - Stable Diabetes mellitus, type 2 - NovoLog SSI - Accu chekcs - OHA are on hold Attending Attestation Patient examined. Assessment and plan formulated with Stephie CAN I agree with the above. Progress Note: Quality VTE Deep Vein Thrombosis/Pulmonary Embolism Present on Admission: No _ (1) GI bleed Qualifiers: GI bleed type/associated pathology: unspecified gastrointestinal hemorrhage type Gastritis type: Qualified Code(s): K92.2 - Gastrointestinal hemorrhage, unspecified
--- NOTE | 2018-12-04 14:37 | P.PNGI ---
Subjective Interval history: Patient seen and examined. Resting comfortably in bed. Patient states he just passed a large bloody stool. Denies abdominal pain. Denies nausea or vomiting. Tolerating liquid diet. Does not feel hungry. Labs were stable this morning with hemoglobin 9.9 and hematocrit 28.3. Patient also passed a small amount of bloody stool this morning. <Trang Ta C - Last Filed: 12/04/18 14:25> Physical Exam Vital signs: Vital Signs 12/03/18 16:03 12/03/18 21:15 12/03/18 22:21 Temperature 98.4 F 97.7 F 98.7 F Pulse Rate 79 89 90 Respiratory Rate 16 20 18 Blood Pressure 163/73 H 172/76 H 166/79 H Pulse Oximetry 99 97 96 12/04/18 00:00 12/04/18 04:00 12/04/18 08:00 Temperature 98.2 F 96.9 F L 97.7 F Pulse Rate 90 90 85 Respiratory Rate 18 18 18 Blood Pressure 169/79 H 176/77 H 150/80 H Pulse Oximetry 96 96 97 12/04/18 12:00 Temperature 97.8 F Pulse Rate 76 Respiratory Rate 18 Blood Pressure 125/72 Pulse Oximetry 98 Intake & Output 12/03/18 12/04/18 12/04/18 18:59 06:59 18:59 Intake Total 1000 / 1000 1580 / 1580 Output Total 800 / 800 Balance 1000 / 1000 780 / 780 Weight 88.5 kg Intake: IV 1000 / 1000 1000 / 1000 NS Inj 1,000 ML @ 100 mls/hr IV 1000 / 1000 1000 / 1000 .CONT .Q10H [facility] Rx#:[id number] Oral 580 / 580 Output: Urine 800 / 800 Other: # Voids 4 Date of Last Bowel Movement 12/02/18 <Trang Ta - Last Filed: 12/04/18 14:25> Vital signs: Vital Signs 12/03/18 21:15 12/03/18 22:21 12/04/18 00:00 Temperature 97.7 F 98.7 F 98.2 F Pulse Rate 89 90 90 Respiratory Rate 20 18 18 Blood Pressure 172/76 H 166/79 H 169/79 H Pulse Oximetry 97 96 96 12/04/18 04:00 12/04/18 08:00 12/04/18 12:00 Temperature 96.9 F L 97.7 F 97.8 F Pulse Rate 90 85 76 Respiratory Rate 18 18 18 Blood Pressure 176/77 H 150/80 H 125/72 Pulse Oximetry 96 97 98 12/04/18 15:53 12/04/18 20:00 Temperature 97.8 F 98.3 F Pulse Rate 85 108 H Respiratory Rate 18 16 Blood Pressure 134/91 H 205/93 H Pulse Oximetry 98 97 Intake & Output 12/04/18 12/04/18 12/05/18 06:59 18:59 06:59 Intake Total 1580 / 1580 3000 / 3000 Output Total 800 / 800 Balance 780 / 780 3000 / 3000 Weight 88.5 kg Intake: IV 1000 / 1000 1000 / 1000 NS Inj 1,000 ML @ 100 mls/hr IV 1000 / 1000 1000 / 1000 .CONT .Q10H [facility] Rx#:[id number] Oral 580 / 580 2000 / 2000 Output: Urine 800 / 800 Other: # Voids 4 Date of Last Bowel Movement 12/02/18 # Bowel Movements 1 <Bobby Finley E - Last Filed: 12/04/18 21:06> Results - Labs CBC & Chem 7: 12/04/18 06:36 12/03/18 14:32 Laboratory Results - last 24 hr 12/03/18 12/03/18 12/03/18 14:32 14:32 16:58 WBC 7.2 RBC 3.15 L Hgb 9.5 L Hct 27.4 L MCV 87.1 MCH 30.2 MCHC 34.7 RDW 14.8 Plt Count 189 MPV 7.3 Neut % (Auto) 68.3 Lymph % (Auto) 18.2 [place] % (Auto) 7.5 Eos % (Auto) 5.3 H Baso % (Auto) 0.7 Neut # (Auto) 4.9 Lymph # (Auto) 1.3 [place] # (Auto) 0.5 Eos # (Auto) 0.4 Baso # (Auto) 0.1 WBC Differential . Differential Comment Auto diff final Sodium 140 Potassium 3.6 Chloride 107 Carbon Dioxide 25.2 Anion Gap 8 BUN 5 L Creatinine 0.71 Estimated GFR Greater than 89 POC Glucose 176 H Random Glucose 170 H Calcium 8.5 12/03/18 12/04/18 12/04/18 20:37 06:36 07:46 WBC 7.3 RBC 3.26 L Hgb 9.9 L Hct 28.3 L MCV 86.9 MCH 30.4 MCHC 35.0 RDW 14.4 Plt Count 220 MPV 7.4 Neut % (Auto) 70.7 H Lymph % (Auto) 15.3 [place] % (Auto) 7.5 Eos % (Auto) 5.9 H Baso % (Auto) 0.6 Neut # (Auto) 5.2 Lymph # (Auto) 1.1 [place] # (Auto) 0.6 Eos # (Auto) 0.4 Baso # (Auto) 0.0 WBC Differential . Differential Comment Auto diff final Sodium Potassium Chloride Carbon Dioxide Anion Gap BUN Creatinine Estimated GFR POC Glucose 175 H 169 H Random Glucose Calcium 12/04/18 11:44 WBC RBC Hgb Hct MCV MCH MCHC RDW Plt Count MPV Neut % (Auto) Lymph % (Auto) [place] % (Auto) Eos % (Auto) Baso % (Auto) Neut # (Auto) Lymph # (Auto) [place] # (Auto) Eos # (Auto) Baso # (Auto) WBC Differential Differential Comment Sodium Potassium Chloride Carbon Dioxide Anion Gap BUN Creatinine Estimated GFR POC Glucose 179 H Random Glucose Calcium <Trang Ta - Last Filed: 12/04/18 14:25> - Labs CBC & Chem 7: 12/04/18 06:36 12/03/18 14:32 Laboratory Results - last 24 hr 12/04/18 12/04/18 12/04/18 06:36 07:46 11:44 WBC 7.3 RBC 3.26 L Hgb 9.9 L Hct 28.3 L MCV 86.9 MCH 30.4 MCHC 35.0 RDW 14.4 Plt Count 220 MPV 7.4 Neut % (Auto) 70.7 H Lymph % (Auto) 15.3 [place] % (Auto) 7.5 Eos % (Auto) 5.9 H Baso % (Auto) 0.6 Neut # (Auto) 5.2 Lymph # (Auto) 1.1 [place] # (Auto) 0.6 Eos # (Auto) 0.4 Baso # (Auto) 0.0 WBC Differential . Differential Comment Auto diff final POC Glucose 169 H 179 H 12/04/18 17:59 WBC RBC Hgb Hct MCV MCH MCHC RDW Plt Count MPV Neut % (Auto) Lymph % (Auto) [place] % (Auto) Eos % (Auto) Baso % (Auto) Neut # (Auto) Lymph # (Auto) [place] # (Auto) Eos # (Auto) Baso # (Auto) WBC Differential Differential Comment POC Glucose 136 H <Bobby Finley E - Last Filed: 12/04/18 21:06> Assessment and Plan (1) Excessive use of nonsteroidal anti-inflammatory drugs (NSAIDs) Status: Acute Code(s): F19.90 - Other psychoactive substance use, unspecified , uncomplicated (2) GI bleed Status: Acute Code(s): K92.2 - Gastrointestinal hemorrhage, unspecified (3) Hematochezia Status: Acute Code(s): K92.1 - Melena - Plan 11/30/2018 This is a pleasant 78-year-old with significant medical history of diverticulitis diverticulosis diabetes type 2 hypertension who came in with rectal bleeding started 2 days ago. Patient had TURP done for prostate cancer. Patient noted over a week that his stool is dark red and today had a massive bowel movement with bright red per rectum which made the patient to be lightheaded and diaphoretic prompting him to come for an ER visit for evaluation. Patient denies having profuse rectal bleeding in the past although he admits that he had diverticulosis with his last colonoscopy. at the ED patient had several more episodes of nannette bleeding per rectum with some clots associated with mild diffuse abdominal discomfort. Patient denies any nausea vomiting. No fever the past 24 hours. Patient does not remember any EGD. had colonoscopy done several years ago and and was told to have diverticulosis. Patient admits to taking daily ibuprofen and aspirin for his osteoarthritis after his fall. Patient denies any cardiac issues or any anticoagulant taken at home. our service is consulted for GI bleed/rectal bleeding. Assessment Hematochezia GI bleeding NSAIDs abuse CTA done 11/30/2018 showed No acute abnormality.. No active source of hemorrhage observed. Diverticulosis of the colon. 12/01/2018 GI bleed in light of NSAID overuse Colon prep completed this a.m.--EGD: In a.m. as per Dr. Chavez to allow for for complete evacuation of colon No reported bleeding post prep --Hemoglobin 11.2 hematocrit 32.0-- No reported abdominal pain nausea or vomiting Plan -Clear liquid diet -N.p.o. after midnight -EGD colonoscopy in the a.m. -Monitor hemoglobin and hematocrit closely-serial hemoglobin and hematocrit every 6 hours -Pantoprazole 40 mg IV push every 12 hours -Antiemetics as per attending -Bleeding scan -Type and hold 2 units packed RBCs for transfusion if needed -Avoid NSAIDs -Avoid anticoagulants -Supportive care -Further recommendations to follow This patient has been seen by myself and Dr. Chavez and this note is written on his been 12/03/2018 GI bleed in light of NSAID overuse EGD yesterday, esophagitis small hiatal hernia widely patent distal esophageal stricture. Colonoscopy yesterday moderate diverticulosis in the descending and sigmoid colon, fresh blood clots seen all over the entire colon but predominantly on the left. No evidence of active GI bleeding on mesenteric arteriogram. No bowel movements today, no hematochezia today. Hemoglobin 9.5, hematocrit 27.4 No abdominal pain or nausea. Tolerating liquid diet. Plan -Clear liquid diet -Monitor hemoglobin and hematocrit closely, serial H&H every 6 hours, transfuse as needed -Pantoprazole 40 mg IV push every 12 hours -Antiemetics as per attending -Avoid NSAIDs and anticoagulants -Supportive care -Further recommendations to follow The patient was seen and examined by myself and Dr. Finley and this note is written on his behalf 12/04/2018 GI bleeding-? Diverticular EGD 12/02/2018, esophagitis small hiatal hernia widely patent distal esophageal stricture. Colonoscopy 12/02/2018 moderate diverticulosis in the descending and sigmoid colon, fresh blood clots seen all over the entire colon but predominantly on the left. No evidence of active GI bleeding on mesenteric arteriogram. A large bloody stool this afternoon. Labs this morning hemoglobin 9.9 , hematocrit 28.3, stable No abdominal pain or nausea. Tolerating liquid diet. -Clear liquid diet. Will hold off on advancing diet due to ongoing rectal bleeding. -Monitor hemoglobin and hematocrit closely, serial H&H every 6 hours, transfuse as needed. -Pantoprazole 40 mg IV push every 12 hours -Antiemetics as per attending -Avoid NSAIDs and anticoagulants -Supportive care -Consider repeat colonoscopy if bleeding persists. -Further recommendations to follow The patient was seen and examined by myself and Dr. Finley and this note is written on his behalf <Trang Ta - Last Filed: 12/04/18 14:25> (1) Excessive use of nonsteroidal anti-inflammatory drugs (NSAIDs) Status: Acute Code(s): F19.90 - Other psychoactive substance use, unspecified , uncomplicated (2) GI bleed Status: Acute Code(s): K92.2 - Gastrointestinal hemorrhage, unspecified (3) Hematochezia Status: Acute Code(s): K92.1 - Melena - Attending Attestation Patient seen and examined Agree with above Continue with current supportive care Monitor labs <Bobby Finley E - Last Filed: 12/04/18 21:06> <Trang Ta - Last Filed: 12/04/18 14:25> (2) GI bleed Qualifiers: GI bleed type/associated pathology: unspecified gastrointestinal hemorrhage type Qualified Code(s): K92.2 - Gastrointestinal hemorrhage, unspecified <Bobby Finley E - Last Filed: 12/04/18 21:06> (2) GI bleed Qualifiers: GI bleed type/associated pathology: unspecified gastrointestinal hemorrhage type Qualified Code(s): K92.2 - Gastrointestinal hemorrhage, unspecified
[2018-12-05] MEDS: Chlorhexidine Gluconate 2% 1 Pack (2 Cloths) TOPICAL SCH (03:49)
[2018-12-05 07:33] LABS: Baso % (Auto) 0.6 % (0.0-2.0); Eos # (Auto) 0.3 th/mm3 (0.0-0.4); Eos % (Auto) 4.4 % (0.0-4.0); Hematocrit 28.9 % (39.0-51.0); Hemoglobin 10.3 gm/dL (13.0-17.0); Lymph # (Auto) 0.8 th/mm3 (1.0-4.8); Mean Corpuscular HGB Conc 35.5 % (32.0-36.0); Mean Corpuscular Hemoglobin 30.8 pg (27.0-34.0); Mean Corpuscular Volume 86.7 fL (80.0-100.0); Mean Platelet Volume 7.1 fL (7.0-11.0); Mono # (Auto) 0.5 th/mm3 (0.0-0.9); Mono % (Auto) 7.5 % (0.0-8.0); Neut # (Auto) 5.1 th/mm3 (1.8-7.7); Neut % (Auto) 75.5 % (16.0-70.0); Platelet Count 233 th/mm3 (150-450); Red Blood Count 3.34 mil/mm3 (4.50-5.90); Red Cell Distribution Width 14.5 % (11.6-17.2); White Blood Count 6.7 th/mm3 (4.0-11.0)
[2018-12-05 07:51] LABS: Anion Gap 9 meq/L (5-15); Blood Urea Nitrogen 7 mg/dL (7-18); Calcium 8.9 mg/dL (8.5-10.1); Carbon Dioxide 24.4 meq/L (21.0-32.0); Chloride 105 meq/L (98-107); Glomerular Filtration Rate Greater Than 89 mL/min (>89); Glucose,Random 141 mg/dL (74-106); Potassium 3.4 meq/L (3.5-5.1); Sodium 138 meq/L (136-145)
[2018-12-05] MEDS: Pantoprazole Inj 40 MG Vial IV.PUSH SCH ×2 (09:05→21:26)
[2018-12-05] MEDS: Insulin NovoLOG Aspart Correctional Sugar Inj SQ SCH ×4 (09:06→21:29)
[2018-12-05] MEDS ORDERED: Potassium Chloride 10 MEQ ER Capsule PO ONE (09:18)
--- NOTE | 2018-12-05 10:08 | P.PNIM ---
Subjective Interval history: No BM overnight or this morning Pt tolerating clear liquids Denies any abd pain No reported bleeding. Physical Exam Vital signs: Last Vital Signs Temp 98.7 F 12/05/18 00:00 Pulse 90 12/05/18 00:00 Resp 16 12/05/18 00:00 BP 142/91 H 12/05/18 00:00 Pulse Ox 98 12/05/18 00:00 Narrative: heart reg lung cta abd s/nt ext no edema Results Labs CBC & Chem 7: 12/06/18 07:48 12/06/18 07:43 Imaging Abdomen/Pelvis CTA 11/30/18 00:00 CONCLUSION: 1. No acute abnormality.. No active source of hemorrhage observed. 2. Diverticulosis of the colon. Abdomen/Pelvis CT 11/30/18 11:44 CONCLUSION: 1. Diverticuli sigmoid colon without diverticulitis 2. Perirectal tissues appear normal 3. I do not see inflammatory changes to account for the left lower quadrant pain. GI Bleed Scan Nuclear Medicine 12/01/18 15:38 CONCLUSION: 1. Left upper quadrant source, probably splenic flexure Mesenteric Arteriogram 12/02/18 10:53 CONCLUSION: 1. No evidence of acute gastrointestinal bleed. Assessment and Plan Assessment (1) Excessive use of nonsteroidal anti-inflammatory drugs (NSAIDs): Code(s): F19.90 - Other psychoactive substance use, unspecified, uncomplicated Status: Acute (2) GI bleed: Code(s): K92.2 - Gastrointestinal hemorrhage, unspecified Status: Acute (3) Hematochezia: Code(s): K92.1 - Melena Status: Acute Plan Hematochezia GI bleeding NSAIDs use - Pt is a 78 y/o male with hx of diverticulitis/diverticulosis, diabetes type 2 , and hypertension who presented to the ED on 11/30/18 with rectal bleeding which started 2 days prior. Patient had TURP done for prostate cancer. Patient noted over a week that his stool is dark red and on the day of admission he had a massive bowel movement with bright red per rectum and he became lightheaded and diaphoretic prompting him to come for an ER for evaluation. Pt reportedly uses ASA and Ibuprofen daily for arthritis pain - In the ED patient had several more episodes of nannette bleeding per rectum with some clots associated with mild diffuse abdominal discomfort. - CTA done 11/30/2018 showed No acute abnormality, no active source of hemorrhage observed, diverticulosis of the colon - Pt had repeat episodes of rectal bleeding and passing some clots on 12/01 - Pt had GIB scan on 12/01 --> Left upper quadrant source, probably splenic flexure - EGD/colon 12/02. A lot of fresh blood throughout colon but a lot of diverticulosis. - Angiography by radiology 12/02...no bleeding nik/sma. - Pt was given 2 units PRBCs 12/02 - h/h stable and improving - Pt tolerating clear liquids, spoke with GI this morning and they have cleared the pt to advance to regular consistency diet and resume ASA - He had two BMs on 12/04 with noted dark/maroon colored blood. None since that time. - Pt is requesting discharge this evening. We discussed with the pt staying overnight to see hoe he tolerates the advanced diet and discharging in the morning but he does not want to do that. HTN - Cont. home bp med - Stable Diabetes mellitus, type 2 - Resume home OHA meds upon discharge - [facility] Progress Note: Quality VTE Deep Vein Thrombosis/Pulmonary Embolism Present on Admission: No _ (1) GI bleed Qualifiers: GI bleed type/associated pathology: unspecified gastrointestinal hemorrhage type Gastritis type: Qualified Code(s): K92.2 - Gastrointestinal hemorrhage, unspecified
[2018-12-06 08:37] LABS: Anion Gap 12 meq/L (5-15); Calcium 9.4 mg/dL (8.5-10.1); Carbon Dioxide 21.3 meq/L (21.0-32.0); Chloride 103 meq/L (98-107); Glomerular Filtration Rate Greater Than 89 mL/min (>89); Glucose,Random 124 mg/dL (74-106); Potassium 3.9 meq/L (3.5-5.1); Sodium 136 meq/L (136-145)
[2018-12-06 08:44] LABS: Blood Urea Nitrogen 10 mg/dL (7-18)
[2018-12-06 08:45] LABS: Baso # (Auto) 0.1 th/mm3 (0.0-0.2); Baso % (Auto) 0.8 % (0.0-2.0); Eos # (Auto) 0.3 th/mm3 (0.0-0.4); Eos % (Auto) 4.7 % (0.0-4.0); Hematocrit 32.4 % (39.0-51.0); Hemoglobin 11.2 gm/dL (13.0-17.0); Lymph # (Auto) 0.9 th/mm3 (1.0-4.8); Lymph % (Auto) 13.4 % (9.0-44.0); Mean Corpuscular HGB Conc 34.6 % (32.0-36.0); Mean Corpuscular Hemoglobin 30.4 pg (27.0-34.0); Mean Corpuscular Volume 87.8 fL (80.0-100.0); Mean Platelet Volume 7.3 fL (7.0-11.0); Mono # (Auto) 0.6 th/mm3 (0.0-0.9); Mono % (Auto) 8.3 % (0.0-8.0); Neut # (Auto) 5.1 th/mm3 (1.8-7.7); Neut % (Auto) 72.8 % (16.0-70.0); Platelet Count 274 th/mm3 (150-450); Red Cell Distribution Width 14.7 % (11.6-17.2)
[2018-12-06] MEDS: Pantoprazole Inj 40 MG Vial IV.PUSH SCH (10:36)
[2018-12-06] MEDS: Insulin NovoLOG Aspart Correctional Sugar Inj SQ SCH ×3 (10:37→17:52)
--- NOTE | 2018-12-06 15:23 | P.PNGI ---
Subjective Interval history: Patient awake and alert Sitting up in bedside chair States plan for discharge this evening Denies abdominal pain or any noted bleeding Physical Exam Vital signs: Vital Signs 12/05/18 16:00 12/05/18 20:00 12/06/18 00:00 Temperature 98.0 F 97.8 F 97.4 F L Pulse Rate 73 94 H 80 Respiratory Rate 18 18 18 Blood Pressure 118/57 L 161/70 H 133/84 Pulse Oximetry 98 96 96 12/06/18 08:00 12/06/18 12:00 Temperature 98.6 F 97.6 F Pulse Rate 96 H 85 Respiratory Rate 18 17 Blood Pressure 124/71 157/74 H Pulse Oximetry 98 95 Intake & Output 12/05/18 12/06/18 12/06/18 18:59 06:59 18:59 Intake Total 595 / 595 780 / 780 Balance 595 / 595 780 / 780 Weight 88.5 kg Intake: Oral 595 / 595 780 / 780 Other: # Voids 2 3 Date of Last Bowel Movement 12/04/18 # Bowel Movements 0 - Constitutional no acute distress, cooperative - Routine HEENT Exam Head: Present: normocephalic ENT: Present: mucous membranes moist - Routine Respiratory Exam Present: CTA bilaterally. Absent: accessory muscle use - Routine Cardiovascular Exam Present: RRR - Routine Abdominal Exam Present: soft, normoactive bowel sounds. Absent: tenderness, distended - Routine Extremities Exam Absent: edema - Routine Skin Exam Present: dry, warm. Absent: pallor - Routine Neurological Exam Present: alert, oriented X3 Results - Labs CBC & Chem 7: 12/06/18 07:48 12/06/18 07:43 Laboratory Results - last 24 hr 12/05/18 12/05/18 12/06/18 17:46 21:27 07:43 WBC RBC Hgb Hct MCV MCH MCHC RDW Plt Count MPV Neut % (Auto) Lymph % (Auto) [place] % (Auto) Eos % (Auto) Baso % (Auto) Neut # (Auto) Lymph # (Auto) [place] # (Auto) Eos # (Auto) Baso # (Auto) WBC Differential Differential Comment Sodium 136 Potassium 3.9 Chloride 103 Carbon Dioxide 21.3 Anion Gap 12 BUN 10 Creatinine 0.71 Estimated GFR Greater than 89 POC Glucose 137 H 133 H Random Glucose 124 H Calcium 9.4 Magnesium 2.0 12/06/18 12/06/18 12/06/18 07:48 08:04 11:37 WBC 7.0 RBC 3.70 L Hgb 11.2 L Hct 32.4 L MCV 87.8 MCH 30.4 MCHC 34.6 RDW 14.7 Plt Count 274 MPV 7.3 Neut % (Auto) 72.8 H Lymph % (Auto) 13.4 [place] % (Auto) 8.3 H Eos % (Auto) 4.7 H Baso % (Auto) 0.8 Neut # (Auto) 5.1 Lymph # (Auto) 0.9 L [place] # (Auto) 0.6 Eos # (Auto) 0.3 Baso # (Auto) 0.1 WBC Differential . Differential Comment Auto diff final Sodium Potassium Chloride Carbon Dioxide Anion Gap BUN Creatinine Estimated GFR POC Glucose 137 H 143 H Random Glucose Calcium Magnesium Assessment and Plan (1) Excessive use of nonsteroidal anti-inflammatory drugs (NSAIDs) Status: Acute Code(s): F19.90 - Other psychoactive substance use, unspecified , uncomplicated (2) GI bleed Status: Acute Code(s): K92.2 - Gastrointestinal hemorrhage, unspecified (3) Hematochezia Status: Acute Code(s): K92.1 - Melena - Plan 11/30/2018 This is a pleasant 78-year-old with significant medical history of diverticulitis diverticulosis diabetes type 2 hypertension who came in with rectal bleeding started 2 days ago. Patient had TURP done for prostate cancer. Patient noted over a week that his stool is dark red and today had a massive bowel movement with bright red per rectum which made the patient to be lightheaded and diaphoretic prompting him to come for an ER visit for evaluation. Patient denies having profuse rectal bleeding in the past although he admits that he had diverticulosis with his last colonoscopy. at the ED patient had several more episodes of nannette bleeding per rectum with some clots associated with mild diffuse abdominal discomfort. Patient denies any nausea vomiting. No fever the past 24 hours. Patient does not remember any EGD. had colonoscopy done several years ago and and was told to have diverticulosis. Patient admits to taking daily ibuprofen and aspirin for his osteoarthritis after his fall. Patient denies any cardiac issues or any anticoagulant taken at home. our service is consulted for GI bleed/rectal bleeding. Assessment Hematochezia GI bleeding NSAIDs abuse CTA done 11/30/2018 showed No acute abnormality.. No active source of hemorrhage observed. Diverticulosis of the colon. 12/01/2018 GI bleed in light of NSAID overuse Colon prep completed this a.m.--EGD: In a.m. as per Dr. Chavez to allow for for complete evacuation of colon No reported bleeding post prep --Hemoglobin 11.2 hematocrit 32.0-- No reported abdominal pain nausea or vomiting Plan -Clear liquid diet -N.p.o. after midnight -EGD colonoscopy in the a.m. -Monitor hemoglobin and hematocrit closely-serial hemoglobin and hematocrit every 6 hours -Pantoprazole 40 mg IV push every 12 hours -Antiemetics as per attending -Bleeding scan -Type and hold 2 units packed RBCs for transfusion if needed -Avoid NSAIDs -Avoid anticoagulants -Supportive care -Further recommendations to follow This patient has been seen by myself and Dr. Chavez and this note is written on his been 12/03/2018 GI bleed in light of NSAID overuse EGD yesterday, esophagitis small hiatal hernia widely patent distal esophageal stricture. Colonoscopy yesterday moderate diverticulosis in the descending and sigmoid colon, fresh blood clots seen all over the entire colon but predominantly on the left. No evidence of active GI bleeding on mesenteric arteriogram. No bowel movements today, no hematochezia today. Hemoglobin 9.5, hematocrit 27.4 No abdominal pain or nausea. Tolerating liquid diet. Plan -Clear liquid diet -Monitor hemoglobin and hematocrit closely, serial H&H every 6 hours, transfuse as needed -Pantoprazole 40 mg IV push every 12 hours -Antiemetics as per attending -Avoid NSAIDs and anticoagulants -Supportive care -Further recommendations to follow The patient was seen and examined by myself and Dr. Finley and this note is written on his behalf 12/04/2018 GI bleeding-? Diverticular EGD 12/02/2018, esophagitis small hiatal hernia widely patent distal esophageal stricture. Colonoscopy 12/02/2018 moderate diverticulosis in the descending and sigmoid colon, fresh blood clots seen all over the entire colon but predominantly on the left. No evidence of active GI bleeding on mesenteric arteriogram. A large bloody stool this afternoon. Labs this morning hemoglobin 9.9 , hematocrit 28.3, stable No abdominal pain or nausea. Tolerating liquid diet. 12/06/2018 GI bleed Patient denies any noted bleeding. Reports BM this a.m. without any noted bleeding 12/02/2018 EGD revealed esophagitis with small hiatal hernia 12/02/2018 colonoscopy revealed moderate amount of diverticulosis in the descending and sigmoid colon with fresh blood clots. Hemoglobin 11.2 hematocrit 32.4 stable Plan Diet advanced Monitor hemoglobin hematocrit Continue PPI Antiemetics if needed as per attending Avoid NSAIDs and anticoagulants Supportive care Colonoscopy in 1 year EGD as needed Patient stable from GI standpoint for discharge home, patient agrees to follow- up with GI in 1 week post discharge This patient has been seen by myself and Dr. Chavez and this note is written on his behalf - Attending Attestation Dr. Chavez (2) GI bleed Qualifiers: GI bleed type/associated pathology: unspecified gastrointestinal hemorrhage type Qualified Code(s): K92.2 - Gastrointestinal hemorrhage, unspecified
== END 2018-12-06 18:43 | disposition home or self-care (01) | DRG 379 ==
LOC: NEPD 09:17 → NEDA 09:17 → NEPHCDU 18:09 → HIMC 19:30 → N05 12-01 16:18 → N07 12-03 22:00
PROVIDERS: ADMIT Hospitalist; ATTEND Hospitalist
PROC: PANENDO (2018-12-02 10:07)
PROC: COLONOS (2018-12-02 10:07)
DX: Z87.891 Personal history of nicotine dependence; M19.90 Unspecified osteoarthritis, unspecified site; K44.9 Diaphragmatic hernia without obstruction or gangrene; Z85.46 Personal history of malignant neoplasm of prostate; Z90.79 Acquired absence of other genital organ(s); I10 Essential (primary) hypertension; Z79.1 Long term (current) use of non-steroidal anti-inflammatories (NSAID); Z79.82 Long term (current) use of aspirin; E11.9 Type 2 diabetes mellitus without complications; K92.2 Gastrointestinal hemorrhage, unspecified; F19.90 Other psychoactive substance use, unspecified, uncomplicated; K20.9 Esophagitis, unspecified; K57.30 Diverticulosis of large intestine without perforation or abscess without bleeding; K92.1 Melena; Z79.84 Long term (current) use of oral hypoglycemic drugs
CPT/HCPCS: 36245; 36246; 36430; 74174; 74177; 75726; 75774; 76937; 78278; 80048; 80053; 81001; 82948; 82962; 83690; 83735; 85014; 85018; 85025; 85610; 85730; 86850; 86900; 86901; 86923; 87641; 90761; 90774; 90784; 96361; 96374; 96375; 99145; 99152; 99153; 99285; A4646; A9560; C1769; C1887; C1893; C1894; C8952; C9113; G0378; J1610; J1815; J2250; J2405; J2704; J3010; J7030; J7120; P9016; Q3010; Q9949; Q9967